=== PATIENT | male | born 1950 | race Asian ===

== ENCOUNTER 2019-03-29 20:18 | Inpatient (IN) | payer MEDICARE, MEDICAID ==
[2019-03-29 21:27] VITALS: BP 143/78
[2019-03-29] MEDS ORDERED: Maalox 30 mL Cup PO PRN (21:51)
[2019-03-29] MEDS ORDERED: Magnesium Hydroxide (MOM) 30 mL UDC PO PRN (21:51)
[2019-03-30] MEDS: Multivitamin Tab PO SCH (08:28)
[2019-03-30 09:13] LABS: CHOLESTEROL 203 mg/dL (<200); HDL -HIGH DENSITY LIPOPROTEIN 55 mg/dL (23-92); TRIGLYCERIDES 179 mg/dL (<150)
--- NOTE | 2019-03-30 11:36 | History and Physical ---
History of Present Illness - HPI Chief Complaint: Patient has been behaving estrange, he was taking to hospital for evaluation, according to report patient has not taking his psychiatric meds. HPI: According to police report his stated that patient has been having an erratic behavior. Vital Signs: Last Vital Signs Temp 97.4 F 03/30/19 06:32 Pulse 98 03/30/19 06:32 Resp 18 03/30/19 06:32 BP 147/88 03/30/19 06:32 Pulse Ox 97 03/30/19 06:32 Past Medical History Cardiovascular: Report: No Pertinent Hx Pulmonary: Report: No Pertinent Hx C[facility]: Report: No Pertinent Hx GI: Report: No Pertinent Hx Psych: Report: No Pertinent Hx Musculoskeletal: Report: No Pertinent Hx Rheumatologic: Report: No pertinent Hx Infectious Disease: Report: No Pertinent Hx Renal/: Report: No Pertinent Hx Endocrine: Report: No Pertinent Hx Dermatology: Report: No Pertinent Hx - Past Surgical History Past Surgical History: Other (Surgery in left foot) Social History Smoke: Quit (in 1994) Alcohol: Occassional Drugs: None Lives: With Family Domestic Violence: Negative - Allergies Allergies/Adverse Reactions: Allergies Allergy/AdvReac Type Severity Reaction Status Date / Time No Known Allergies Allergy Verified 03/29/19 21:49 Review of Systems - Review of Systems Constitutional: Report: No Significant Eyes: Report: No Significant ENT: Report: No Significant Respiratory: Report: No Significant Cardiovascular: Report: No Significant Gastrointestinal: Report: No Significant Genitourinary: Report: No Significant Musculoskeletal: Report: No Significant Skin: Report: No Significant Neurological: Report: No Significant Physical Exam - Physical Exam HEENT: Report: Ears Nose Throat within normal limits Neck: Report: Within normal limits Cardiovascular Systems: Report: Regular, Rate and Rhythm Respiratory: Report: Breath Sounds are within normal limits Abdomen: Report: Non-tender to palpation Back: Report: Inspection of back is within normal limits. Extremities: Report: Non-tender to palpation. Skin: Report: Color of skin is within normal limits Neuro/Psych: Report: Disoriented to name time or place - Lab Results All Lab Results last 24 hours: Laboratory Results - last 24 hr 03/30/19 08:11 Triglycerides 179 H Cholesterol 203 H LDL Cholesterol Direct 131 HDL Cholesterol 55 - Assessment Assessment: Patient is awake, alert, calm, in no acute distress. - Plan Plan: Patient is follow by Psychiatry.
[2019-03-30] MEDS: OLANZapine 10 mg Oral Disintegrating Tab PO SCH (20:37)
[2019-03-31 07:15] LABS: % BASOPHILS 0.4 % (0.0-2.0); % EOSINOPHILS 3.2 % (0.0-5.0); % LYMPHOCYTES 15.8 % (20.0-50.0); % MONOCYTES 6.2 % (2.0-10.0); % NEUTROPHILS 74.4 % (40.0-80.0); EOSINOPHILE ABSOLUTE 0.3 Th/cmm (0.1-0.4); HEMATOCRIT 42.1 % (41.0-60); HEMOGLOBIN 13.9 gm/dL (12-16); LYMPHOCYTE ABSOLUTE 1.4 Th/cmm (1.5-3.0); MEAN CELL VOLUME 94.3 fl (80-99); MEAN CORPUSCULAR HEMOGLOBIN 31.2 pg (27.0-31.0); MEAN PLATELET VOLUME 6.7 fl; MONOCYTE ABSOLUTE 0.6 Th/cmm (0.3-1.0); NEUTROPHILE ABSOLUTE 6.8 Th/cmm (1.8-8.0); PLATELET COUNT 280 Th/cmm (150-400); RED BLOOD COUNT 4.47 Mil/cmm (3.80-5.80); RED CELL DISTRIBUTION WIDTH 13.3 % (11.5-20.0); WHITE BLOOD COUNT 9.1 Th/cmm (4.8-10.8)
[2019-03-31 07:34] LABS: ALB/GLOB RATIO 1.2 (1.0-1.8); ALBUMIN 3.9 gm/dL (4.2-5.5); ALKALINE PHOSPHATASE 64 U/L (34-104); ANION GAP 11.6 (7.0-16.0); BILIRUBIN,TOTAL 0.7 mg/dL (0.3-1.0); BUN - UREA NITROGEN 13 mg/dL (7-25); CALCIUM SERUM 9.1 mg/dL (8.6-10.3); CARBON DIOXIDE 25.5 mEq/L (21.0-31.0); CHLORIDE 104 mEq/L (98-107); CREATININE - SERUM 0.8 mg/dL (0.7-1.3); GFR AFRICAN-AMERICAN > 60.0 ml/min (>90); GFR NON AFRICAN-AMERICAN > 60.0 ml/min; GLUCOSE 120 mg/dL (70-105); POTASSIUM SERUM 4.1 mEq/L (3.5-5.1); SGOT 20 U/L (13-39); SGPT/ALT 15 U/L (7-52); SODIUM SERUM 137 mEq/L (136-145); TOTAL PROTEIN,SERUM 7.2 gm/dL (6.0-8.3)
[2019-03-31] MEDS: Multivitamin Tab PO SCH (08:58)
--- NOTE | 2019-03-31 09:24 | General Progress Note ---
Subjective - Review of Systems Service Date: 03/31/19 Subjective: I am fine Objective - Results Result Diagrams: 03/31/19 07:00 03/31/19 07:00 Recent Labs: Laboratory Last Values WBC 9.1 Th/cmm (4.8-10.8) 03/31/19 07:00 RBC 4.47 Mil/cmm (3.80-5.80) 03/31/19 07:00 Hgb 13.9 gm/dL (12-16) 03/31/19 07:00 Hct 42.1 % (41.0-60) 03/31/19 07:00 MCV 94.3 fl (80-99) 03/31/19 07:00 MCH 31.2 pg (27.0-31.0) H 03/31/19 07:00 MCHC Differential 33.0 pg (28.0-36.0) 03/31/19 07:00 RDW 13.3 % (11.5-20.0) 03/31/19 07:00 Plt Count 280 Th/cmm (150-400) 03/31/19 07:00 MPV 6.7 fl 03/31/19 07:00 Neutrophils % 74.4 % (40.0-80.0) 03/31/19 07:00 Lymphocytes % 15.8 % (20.0-50.0) L 03/31/19 07:00 Monocytes % 6.2 % (2.0-10.0) 03/31/19 07:00 Eosinophils % 3.2 % (0.0-5.0) 03/31/19 07:00 Basophils % 0.4 % (0.0-2.0) 03/31/19 07:00 Sodium 137 mEq/L (136-145) 03/31/19 07:00 Potassium 4.1 mEq/L (3.5-5.1) 03/31/19 07:00 Chloride 104 mEq/L (98-107) 03/31/19 07:00 Carbon Dioxide 25.5 mEq/L (21.0-31.0) 03/31/19 07:00 Anion Gap 11.6 (7.0-16.0) 03/31/19 07:00 BUN 13 mg/dL (7-25) 03/31/19 07:00 Creatinine 0.8 mg/dL (0.7-1.3) 03/31/19 07:00 Est GFR ( Amer) > 60.0 ml/min (>90) 03/31/19 07:00 Est GFR (Non-Af Amer) > 60.0 ml/min 03/31/19 07:00 BUN/Creatinine Ratio 16.3 03/31/19 07:00 Glucose 120 mg/dL (70-105) H 03/31/19 07:00 Calcium 9.1 mg/dL (8.6-10.3) 03/31/19 07:00 Total Bilirubin 0.7 mg/dL (0.3-1.0) 03/31/19 07:00 AST 20 U/L (13-39) 03/31/19 07:00 ALT 15 U/L (7-52) 03/31/19 07:00 Alkaline Phosphatase 64 U/L (34-104) 03/31/19 07:00 Total Protein 7.2 gm/dL (6.0-8.3) 03/31/19 07:00 Albumin 3.9 gm/dL (4.2-5.5) L 03/31/19 07:00 Globulin 3.3 gm/dL 03/31/19 07:00 Albumin/Globulin Ratio 1.2 (1.0-1.8) 03/31/19 07:00 Triglycerides 179 mg/dL (<150) H 03/30/19 08:11 Cholesterol 203 mg/dL (<200) H 03/30/19 08:11 LDL Cholesterol Direct 131 mg/dL (75-193) 03/30/19 08:11 HDL Cholesterol 55 mg/dL (23-92) 03/30/19 08:11 TSH 1.15 uIU/ml (0.34-5.60) 03/31/19 07:00 - Physical Exam Vitals and I&O: Vital Signs Temp 98.4 F 03/31/19 06:18 Pulse 92 03/31/19 06:18 Resp 20 03/31/19 06:18 BP 139/91 03/31/19 06:18 Pulse Ox 96 03/31/19 06:18 Intake & Output 03/30/19 03/31/19 03/31/19 18:59 06:59 18:59 Intake Total 120 Output Total 4 Balance -4 120 Intake: Oral 120 Output: Stool 3 Urine/Stool Mix 1 Other: # Voids 3 Active Medications: Current Medications Acetaminophen (Tylenol) 650 mg PO Q4HR PRN PRN Reason: Mild Pain / Temp above 100 Stop: 05/28/19 21:50 Al Hydrox/Mg Hydrox/Simethicone (Maalox) 30 ml PO Q4HR PRN PRN Reason: GI DISTRESS Stop: 05/28/19 21:50 Lorazepam (Ativan) 0.5 mg PO Q4HR PRN; Protocol PRN Reason: Agitation Stop: 04/28/19 21:50 Last Admin: 03/31/19 08:58 Dose: 0.5 mg Magnesium Hydroxide (Milk Of Magnesia) 30 ml PO HS PRN PRN Reason: Constipation Multivitamins/Vitamin C (Theragran) 1 tab PO DAILY [facility] Stop: 05/29/19 08:59 Last Admin: 03/31/19 08:58 Dose: 1 tab Olanzapine (Zyprexa Zydis) 10 mg PO HS [facility]; Protocol Stop: 05/29/19 20:59 Last Admin: 03/30/19 20:37 Dose: 10 mg Zolpidem Tartrate (Ambien) 5 mg PO HS PRN PRN Reason: Insomnia Stop: 05/28/19 21:50 General: Alert, Other (Confused) HEENT: Atraumatic Neck: Supple Cardiovascular: Regular rate Lungs: Clear to auscultation Abdomen: Bowel sounds Extremities: Other (No edema) Neurological: Normal gait Skin: Other (Warm and dry) Psych/Mental Status: Other (Confused, not oriented) Assessment/Plan - Assessment Assessment: Patient is awake, alert, calm, in no acute distress. Labs are WNL. - Plan Plan: Patient is follow by Psychiatry.
--- NOTE | 2019-03-31 11:17 | Psychiatric Evaluation ---
DATE OF SERVICE: IDENTIFYING INFORMATION: The patient is a 68-year-old Kinyarw[place] male. CHIEF COMPLAINT: "My son convinced me to come here, so I can do a recreation." HISTORY OF PRESENT ILLNESS: The patient has been acting weird. He was taken to the hospital for evaluation. The patient has not been taking his psychotropic medications. It was noted on previous report that his stated that the patient has been having an erratic behavior. The patient himself was a poor historian. He believes that he is 81 years of age and that he has been for more than 40 years, on reality he is actually 68 years of age. The patient was not sure why he is here. He believes he is here for recreation. According to the staff he has not been sleeping. He has been acting erratic, hard to redirect. The patient denies that he has any mental illness. No history of violence. The patient was able to tell me the date. He believes he is in a recreational place. He reports he sleeps 10 hours at night when the information was actually like he has not been sleeping. His appetite is okay. The patient reports he lives with his and that his was born in 1948. He reports that he has okay relation with his . PAST PSYCHIATRIC HISTORY: The patient denies any prior psychiatric treatment; however, according to the records, the patient apparently has not been taking his psychotropic medications, the patient is unable to give any information in that aspect. The patient apparently has been on Zyprexa 10 mg at bedtime. MEDICAL HISTORY: No other medical condition diagnosed. ALLERGIES: No known drug allergies. FAMILY AND SOCIAL HISTORY: The patient reports being since 1975. He reports he has been for 40 years. He said he has 4 children, 2 boys, 2 girls. He is retired. He reported has high school education from [place]. 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 He denies any substance abuse. Denies family Psychotic disorder, not having any legal problem. MENTAL STATUS EXAMINATION: The patient is appropriately dressed, appropriately groomed. His mood is depressed. Affect is constricted. His thoughts are somewhat confused as to believe he is 81 years of age when he is 68. He was able to tell me the date and who is the president of [employer], who was before him, but he is not sure of the reason why he is here. He has not been sleeping, acting erratic, bizarre, diagnosed with john with a history of manic episodes. His insight and judgment is impaired. He denies any intent to harm himself or anybody. He denies visual hallucination or paranoia. IMPRESSION: Bipolar disorder, not otherwise specified. MEDICAL DIAGNOSES: As per medical doctor. PLAN: The patient will continue with the Zyprexa. We will get more collateral information from the family, we will do group therapy and milieu therapy. ESTIMATED LENGTH OF STAY: 3-7 days. DISCHARGE CRITERIA: Acting normal. No longer acting out. After discharge will be seen as an outpatient. JOB# [id number]
[2019-03-31] MEDS: Vitamin D3 2,000 IU SGL PO SCH (15:41)
[2019-03-31] MEDS: Calcium Carb/Vit D 500 mg/200 U Tab PO SCH (17:10)
[2019-03-31] MEDS: OLANZapine 10 mg Oral Disintegrating Tab PO SCH (20:36)
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
[2019-04-01] MEDS: Multivitamin Tab PO SCH (08:48)
[2019-04-01] MEDS: Vitamin D3 2,000 IU SGL PO SCH (08:48)
[2019-04-01] MEDS: Calcium Carb/Vit D 500 mg/200 U Tab PO SCH ×2 (08:49→17:06)
--- NOTE | 2019-04-01 08:51 | General Progress Note ---
Subjective - Review of Systems Service Date: 04/01/19 Subjective: I am fine Objective - Results Result Diagrams: 03/31/19 07:00 03/31/19 07:00 Recent Labs: Laboratory Last Values WBC 9.1 Th/cmm (4.8-10.8) 03/31/19 07:00 RBC 4.47 Mil/cmm (3.80-5.80) 03/31/19 07:00 Hgb 13.9 gm/dL (12-16) 03/31/19 07:00 Hct 42.1 % (41.0-60) 03/31/19 07:00 MCV 94.3 fl (80-99) 03/31/19 07:00 MCH 31.2 pg (27.0-31.0) H 03/31/19 07:00 MCHC Differential 33.0 pg (28.0-36.0) 03/31/19 07:00 RDW 13.3 % (11.5-20.0) 03/31/19 07:00 Plt Count 280 Th/cmm (150-400) 03/31/19 07:00 MPV 6.7 fl 03/31/19 07:00 Neutrophils % 74.4 % (40.0-80.0) 03/31/19 07:00 Lymphocytes % 15.8 % (20.0-50.0) L 03/31/19 07:00 Monocytes % 6.2 % (2.0-10.0) 03/31/19 07:00 Eosinophils % 3.2 % (0.0-5.0) 03/31/19 07:00 Basophils % 0.4 % (0.0-2.0) 03/31/19 07:00 Sodium 137 mEq/L (136-145) 03/31/19 07:00 Potassium 4.1 mEq/L (3.5-5.1) 03/31/19 07:00 Chloride 104 mEq/L (98-107) 03/31/19 07:00 Carbon Dioxide 25.5 mEq/L (21.0-31.0) 03/31/19 07:00 Anion Gap 11.6 (7.0-16.0) 03/31/19 07:00 BUN 13 mg/dL (7-25) 03/31/19 07:00 Creatinine 0.8 mg/dL (0.7-1.3) 03/31/19 07:00 Est GFR ( Amer) > 60.0 ml/min (>90) 03/31/19 07:00 Est GFR (Non-Af Amer) > 60.0 ml/min 03/31/19 07:00 BUN/Creatinine Ratio 16.3 03/31/19 07:00 Glucose 120 mg/dL (70-105) H 03/31/19 07:00 Calcium 9.1 mg/dL (8.6-10.3) 03/31/19 07:00 Total Bilirubin 0.7 mg/dL (0.3-1.0) 03/31/19 07:00 AST 20 U/L (13-39) 03/31/19 07:00 ALT 15 U/L (7-52) 03/31/19 07:00 Alkaline Phosphatase 64 U/L (34-104) 03/31/19 07:00 Total Protein 7.2 gm/dL (6.0-8.3) 03/31/19 07:00 Albumin 3.9 gm/dL (4.2-5.5) L 03/31/19 07:00 Globulin 3.3 gm/dL 03/31/19 07:00 Albumin/Globulin Ratio 1.2 (1.0-1.8) 03/31/19 07:00 Triglycerides 179 mg/dL (<150) H 03/30/19 08:11 Cholesterol 203 mg/dL (<200) H 03/30/19 08:11 LDL Cholesterol Direct 131 mg/dL (75-193) 03/30/19 08:11 HDL Cholesterol 55 mg/dL (23-92) 03/30/19 08:11 TSH 1.15 uIU/ml (0.34-5.60) 03/31/19 07:00 - Physical Exam Vitals and I&O: Vital Signs Temp 98.3 F 04/01/19 06:18 Pulse 80 04/01/19 08:49 Resp 20 04/01/19 06:18 BP 157/86 04/01/19 08:49 Pulse Ox 94 04/01/19 06:18 Intake & Output 03/31/19 04/01/19 04/01/19 18:59 06:59 18:59 Intake Total 1200 240 Balance 1200 240 Intake: Oral 1200 240 Other: # Voids 4 3 # Bowel Movements 1 0 Active Medications: Current Medications Acetaminophen (Tylenol) 650 mg PO Q4HR PRN PRN Reason: Mild Pain / Temp above 100 Stop: 05/28/19 21:50 Al Hydrox/Mg Hydrox/Simethicone (Maalox) 30 ml PO Q4HR PRN PRN Reason: GI DISTRESS Stop: 05/28/19 21:50 Alendronate Sodium (Fosamax) 70 mg PO Fr@0630 [facility] Stop: 06/03/19 06:29 Calcium/Vitamin D (Oscal W/Vitamin D) 1 tab PO BID [facility] Stop: 05/30/19 16:59 Last Admin: 04/01/19 08:49 Dose: 1 tab Ezetimibe (Zetia) 10 mg PO HS [facility] Stop: 05/30/19 20:59 Last Admin: 03/31/19 20:35 Dose: 10 mg Lorazepam (Ativan) 0.5 mg PO Q4HR PRN; Protocol PRN Reason: Agitation Stop: 04/28/19 21:50 Last Admin: 03/31/19 08:58 Dose: 0.5 mg Losartan Potassium (Cozaar) 50 mg PO DAILY [facility] Stop: 05/31/19 08:59 Last Admin: 04/01/19 08:49 Dose: 50 mg Magnesium Hydroxide (Milk Of Magnesia) 30 ml PO HS PRN PRN Reason: Constipation Multivitamins/Vitamin C (Theragran) 1 tab PO DAILY [facility] Stop: 05/29/19 08:59 Last Admin: 04/01/19 08:48 Dose: 1 tab Olanzapine (Zyprexa Zydis) 10 mg PO HS [facility]; Protocol Stop: 05/29/19 20:59 Last Admin: 03/31/19 20:36 Dose: 10 mg Vitamin D (Vitamin D3) 2,000 iu PO DAILY [facility] Stop: 05/30/19 14:59 Last Admin: 04/01/19 08:48 Dose: 2,000 iu Zolpidem Tartrate (Ambien) 5 mg PO HS PRN PRN Reason: Insomnia Stop: 05/28/19 21:50 Last Admin: 03/31/19 20:36 Dose: 5 mg General: Alert, Other (Confused) HEENT: Atraumatic Neck: Supple Cardiovascular: Regular rate Lungs: Clear to auscultation Abdomen: Bowel sounds Extremities: Other (No edema) Neurological: Normal gait Skin: Other (Warm and dry) Psych/Mental Status: Other (Confused, not oriented) Assessment/Plan - Assessment Assessment: Patient is awake, alert, calm, in no acute distress. Dx Psychosis, HTN, dyslipemia. - Plan Plan: Patient is follow by Psychiatry. Continue with home meds. Will continue to monitor.
[2019-04-01] MEDS: OLANZapine ODT 10 MG, OLANZapine ODT 5 MG PO SCH (20:58)
[2019-04-01] MEDS ORDERED: OLANZapine 10 mg Oral Disintegrating Tab PO SCH (21:00)
--- NOTE | 2019-04-02 04:02 | Progress Notes ---
DATE: 04/01/2019 SUBJECTIVE: The patient seen, chart reviewed, discussed with staff. The patient currently in the hospital, states he needs to leave, seen today on 04/01/2019. The patient states he is here because he was apparently "handling books and paperwork at home." He is fixated on leaving, states he has to go to a DMV appointment soon, then he tells me his belongings are in [place] and he has to fly to [facility] and then [facility]. He states he has 3 suitcases full of clothing that he needs to give to the poor people there, "I don't need them, they're not my clothes." The patient is currently in the hospital, not really able to be cared for at a lower level of care. Apparently was acting strange, erratic behaviors at home, hard to redirect at home. ASSESSMENT: The patient is hyperverbal, wants to give his belongings away. PLAN: I will be titrating dosages of medications. It is unclear if he has an underlying bipolar. We will try to get more information. JOB# [id number]
[2019-04-02] MEDS: Calcium Carb/Vit D 500 mg/200 U Tab PO SCH ×2 (09:14→17:21)
[2019-04-02] MEDS: Multivitamin Tab PO SCH (09:15)
[2019-04-02] MEDS: Vitamin D3 2,000 IU SGL PO SCH (09:15)
[2019-04-02] MEDS: Guaifenesin DM 10 ML UDC PO SCH ×2 (12:00→17:20)
[2019-04-02] MEDS: OLANZapine ODT 10 MG, OLANZapine ODT 5 MG PO SCH (21:05)
[2019-04-03] MEDS: Guaifenesin DM 10 ML UDC PO SCH ×4 (00:30→16:59)
[2019-04-03] MEDS: Vitamin D3 2,000 IU SGL PO SCH (08:06)
[2019-04-03] MEDS: Calcium Carb/Vit D 500 mg/200 U Tab PO SCH ×2 (08:06→16:57)
[2019-04-03] MEDS: Multivitamin Tab PO SCH (08:07)
--- NOTE | 2019-04-03 08:42 | General Progress Note ---
Subjective - Review of Systems Service Date: 04/03/19 Subjective: I am fine Objective - Results Result Diagrams: 03/31/19 07:00 03/31/19 07:00 Recent Labs: Laboratory Last Values WBC 9.1 Th/cmm (4.8-10.8) 03/31/19 07:00 RBC 4.47 Mil/cmm (3.80-5.80) 03/31/19 07:00 Hgb 13.9 gm/dL (12-16) 03/31/19 07:00 Hct 42.1 % (41.0-60) 03/31/19 07:00 MCV 94.3 fl (80-99) 03/31/19 07:00 MCH 31.2 pg (27.0-31.0) H 03/31/19 07:00 MCHC Differential 33.0 pg (28.0-36.0) 03/31/19 07:00 RDW 13.3 % (11.5-20.0) 03/31/19 07:00 Plt Count 280 Th/cmm (150-400) 03/31/19 07:00 MPV 6.7 fl 03/31/19 07:00 Neutrophils % 74.4 % (40.0-80.0) 03/31/19 07:00 Lymphocytes % 15.8 % (20.0-50.0) L 03/31/19 07:00 Monocytes % 6.2 % (2.0-10.0) 03/31/19 07:00 Eosinophils % 3.2 % (0.0-5.0) 03/31/19 07:00 Basophils % 0.4 % (0.0-2.0) 03/31/19 07:00 Sodium 137 mEq/L (136-145) 03/31/19 07:00 Potassium 4.1 mEq/L (3.5-5.1) 03/31/19 07:00 Chloride 104 mEq/L (98-107) 03/31/19 07:00 Carbon Dioxide 25.5 mEq/L (21.0-31.0) 03/31/19 07:00 Anion Gap 11.6 (7.0-16.0) 03/31/19 07:00 BUN 13 mg/dL (7-25) 03/31/19 07:00 Creatinine 0.8 mg/dL (0.7-1.3) 03/31/19 07:00 Est GFR ( Amer) > 60.0 ml/min (>90) 03/31/19 07:00 Est GFR (Non-Af Amer) > 60.0 ml/min 03/31/19 07:00 BUN/Creatinine Ratio 16.3 03/31/19 07:00 Glucose 120 mg/dL (70-105) H 03/31/19 07:00 POC Glucose 106 MG/DL (70-105) H 03/29/19 21:20 Calcium 9.1 mg/dL (8.6-10.3) 03/31/19 07:00 Total Bilirubin 0.7 mg/dL (0.3-1.0) 03/31/19 07:00 AST 20 U/L (13-39) 03/31/19 07:00 ALT 15 U/L (7-52) 03/31/19 07:00 Alkaline Phosphatase 64 U/L (34-104) 03/31/19 07:00 Total Protein 7.2 gm/dL (6.0-8.3) 03/31/19 07:00 Albumin 3.9 gm/dL (4.2-5.5) L 03/31/19 07:00 Globulin 3.3 gm/dL 03/31/19 07:00 Albumin/Globulin Ratio 1.2 (1.0-1.8) 03/31/19 07:00 Triglycerides 179 mg/dL (<150) H 03/30/19 08:11 Cholesterol 203 mg/dL (<200) H 03/30/19 08:11 LDL Cholesterol Direct 131 mg/dL (75-193) 03/30/19 08:11 HDL Cholesterol 55 mg/dL (23-92) 03/30/19 08:11 TSH 1.15 uIU/ml (0.34-5.60) 03/31/19 07:00 - Physical Exam Vitals and I&O: Vital Signs Temp 98.0 F 04/03/19 06:53 Pulse 94 04/03/19 08:06 Resp 18 04/03/19 06:53 BP 117/70 04/03/19 08:06 Pulse Ox 94 04/03/19 06:53 Intake & Output 04/02/19 04/03/19 04/03/19 18:59 06:59 18:59 Intake Total 240 Balance 240 Intake: Oral 240 Other: # Voids 3 3 # Bowel Movements 1 0 Active Medications: Current Medications Acetaminophen (Tylenol) 650 mg PO Q4HR PRN PRN Reason: Mild Pain / Temp above 100 Stop: 05/28/19 21:50 Al Hydrox/Mg Hydrox/Simethicone (Maalox) 30 ml PO Q4HR PRN PRN Reason: GI DISTRESS Stop: 05/28/19 21:50 Alendronate Sodium (Fosamax) 70 mg PO Th@0630 [facility] Stop: 06/02/19 06:29 Last Admin: 04/03/19 06:34 Dose: 70 mg Calcium/Vitamin D (Oscal W/Vitamin D) 1 tab PO BID [facility] Stop: 05/30/19 16:59 Last Admin: 04/03/19 08:06 Dose: 1 tab Ezetimibe (Zetia) 10 mg PO HS [facility] Stop: 05/30/19 20:59 Last Admin: 04/02/19 21:05 Dose: 10 mg Guaifenesin/Dextromethorphan (Robitussin Dm) 10 ml PO Q6HR [facility] Stop: 06/01/19 11:59 Last Admin: 04/03/19 06:00 Dose: 10 ml Lorazepam (Ativan) 0.5 mg PO Q4HR PRN; Protocol PRN Reason: Agitation Stop: 04/28/19 21:50 Last Admin: 04/02/19 17:21 Dose: 0.5 mg Losartan Potassium (Cozaar) 50 mg PO DAILY [facility] Stop: 05/31/19 08:59 Last Admin: 04/03/19 08:06 Dose: 50 mg Magnesium Hydroxide (Milk Of Magnesia) 30 ml PO HS PRN PRN Reason: Constipation Multivitamins/Vitamin C (Theragran) 1 tab PO DAILY [facility] Stop: 05/29/19 08:59 Last Admin: 04/03/19 08:07 Dose: 1 tab Olanzapine 10 mg/ Olanzapine 5 (mg) 15 mg PO HS [facility] Stop: 05/31/19 20:59 Last Admin: 04/02/19 21:05 Dose: 15 mg Vitamin D (Vitamin D3) 2,000 iu PO DAILY [facility] Stop: 05/30/19 14:59 Last Admin: 04/03/19 08:06 Dose: 2,000 iu Zolpidem Tartrate (Ambien) 5 mg PO HS PRN PRN Reason: Insomnia Stop: 05/28/19 21:50 Last Admin: 03/31/19 20:36 Dose: 5 mg General: Alert, Other (Confused) HEENT: Atraumatic Neck: Supple Cardiovascular: Regular rate Lungs: Clear to auscultation Abdomen: Bowel sounds Extremities: Other (No edema) Neurological: Normal gait Skin: Other (Warm and dry) Psych/Mental Status: Other (Confused, not oriented) Assessment/Plan - Assessment Assessment: Patient is awake, alert, calm, confused, in no acute distress. - Plan Plan: Patient is follow by Psychiatry. Continue with home meds. Will continue to monitor. Nutritional Asmnt/Malnutr-PDOC - Dietary Evaluation Malnutrition Findings (Please click <Entered> for more info): Nutritional Asmnt/Malnutrition Start: 04/02/19 15: 01 Text: Status: Active Freq: Protocol: Document 04/02/19 15:01 CLARENCE (Rec: 04/02/19 15:23 CLARENCE [email or web address]) Nutritional Asmnt/Malnutrition Patient General Information Nutritional Screening Moderate Risk Diagnosis SCHIZOPHRENIA/ BIPOLAR DISORDER Subjective Information PER SMT OPERATOR : " oriented to self, place and time. He is pleasant upon approach, noted to be talkative, intrusive and guarded, may be anxious at times. Redirectable. No episode of yelling/shouting nor behavioral outbursts noted which were the reasons why he was initially admitted. Ambulatory with steady gait, able to do ADLs independently. VS are within normal limits, not in CR distress, no complaint of pain. " Current Diet Order/ Nutrition Support REGULAR Patient / S.O Can Pertinent Medications MAALOX, FOSAMAX, OSCAL, Pertinent Labs GLUC 120 Nutritional Hx/Data Height 1.7 m Height (Calculated Centimeters) 170.2 Current Weight (lbs) 67.132 kg Weight (Calculated Kilograms) 67.1 Weight (Calculated Grams) 83126.7 [place] Body Weight 67.3 % [place] Body Weight 100 Body Mass Index (BMI) 23.1 Recent Weight Change No Weight Status Approriate GI Symptoms GI Symptoms None Last BM today Difficult in: None Food Allergies No Usual diet at home regular Current %PO Good (75-100%) Estimated Nutritional Goals BEE in Kcals: Using Current wt Calories/Kcals/Kg 25-30 Kcals Calculated 4917-9108 Protein: Using Current wt Protein g/k.8-1 Protein Calculated 54-67 Fluid: ml 1.6-2 (1 ml/kcal) Nutritional Problem 1. Problem Problem No Nutrition related concerns at this time Intervention/Recommendation Comments DECREASED NUTRITION RISK TO LOW DUE TO NO NUTRITION RELATED CONCERNS AT THIS TIME Expected Outcomes/Goals Expected Outcomes/Goals PT TO RECEIVE >90-100% ESTIMATED ENERGY AND PROTEIN DIETITIAN WILL MONITOR PO INTAKE, NUTRITION-RELATED LABS TRENDING WNL, SKIN INTEGRITY, WEIGHTS, GI FUNCTION. DISCHARGE PLAN:PATIENT SHOULD BE ABLE TO CONTINUE WITH CURRENT DIET UPON DISCHARGE. F/UP IN [address]
--- NOTE | 2019-04-03 12:58 | Progress Notes ---
DATE: SUBJECTIVE: The patient seen, chart reviewed, discussed with staff. Per collateral has a long history of bipolar, poor med compliance, aggressive at home. The patient convinced that he needs to go to the [facility], get an updated identification and go [place] [facility] [place]. He states that he has a lot of bags in [facility]. He states that he wants to go to [place], then [facility] and give his clothes away. The patient appearing manic, speech is pressured, ongoing symptoms with grandiosity. He has manic symptoms. Erratic sleep. Fair appetite. No agitation and he is generally following the rules and every directions just very intent on leaving and following up with this plan of giving away all of his belongings to people in the [place]. PLAN: We will continue to monitor. Continue inpatient hospitalization. Medications were noted. Continue dosing of Zyprexa. JOB# [id number]
[2019-04-03] MEDS: OLANZapine ODT 10 MG, OLANZapine ODT 5 MG PO SCH (21:10)
[2019-04-04] MEDS: Guaifenesin DM 10 ML UDC PO SCH ×4 (02:26→17:08)
[2019-04-04] MEDS: Vitamin D3 2,000 IU SGL PO SCH (08:18)
[2019-04-04] MEDS: Calcium Carb/Vit D 500 mg/200 U Tab PO SCH ×2 (08:18→16:08)
[2019-04-04] MEDS: Multivitamin Tab PO SCH (08:19)
--- NOTE | 2019-04-04 09:14 | General Progress Note ---
Subjective - Review of Systems Service Date: 04/04/19 Subjective: I am fine Objective - Results Result Diagrams: 03/31/19 07:00 03/31/19 07:00 Recent Labs: Laboratory Last Values WBC 9.1 Th/cmm (4.8-10.8) 03/31/19 07:00 RBC 4.47 Mil/cmm (3.80-5.80) 03/31/19 07:00 Hgb 13.9 gm/dL (12-16) 03/31/19 07:00 Hct 42.1 % (41.0-60) 03/31/19 07:00 MCV 94.3 fl (80-99) 03/31/19 07:00 MCH 31.2 pg (27.0-31.0) H 03/31/19 07:00 MCHC Differential 33.0 pg (28.0-36.0) 03/31/19 07:00 RDW 13.3 % (11.5-20.0) 03/31/19 07:00 Plt Count 280 Th/cmm (150-400) 03/31/19 07:00 MPV 6.7 fl 03/31/19 07:00 Neutrophils % 74.4 % (40.0-80.0) 03/31/19 07:00 Lymphocytes % 15.8 % (20.0-50.0) L 03/31/19 07:00 Monocytes % 6.2 % (2.0-10.0) 03/31/19 07:00 Eosinophils % 3.2 % (0.0-5.0) 03/31/19 07:00 Basophils % 0.4 % (0.0-2.0) 03/31/19 07:00 Sodium 137 mEq/L (136-145) 03/31/19 07:00 Potassium 4.1 mEq/L (3.5-5.1) 03/31/19 07:00 Chloride 104 mEq/L (98-107) 03/31/19 07:00 Carbon Dioxide 25.5 mEq/L (21.0-31.0) 03/31/19 07:00 Anion Gap 11.6 (7.0-16.0) 03/31/19 07:00 BUN 13 mg/dL (7-25) 03/31/19 07:00 Creatinine 0.8 mg/dL (0.7-1.3) 03/31/19 07:00 Est GFR ( Amer) > 60.0 ml/min (>90) 03/31/19 07:00 Est GFR (Non-Af Amer) > 60.0 ml/min 03/31/19 07:00 BUN/Creatinine Ratio 16.3 03/31/19 07:00 Glucose 120 mg/dL (70-105) H 03/31/19 07:00 POC Glucose 106 MG/DL (70-105) H 03/29/19 21:20 Calcium 9.1 mg/dL (8.6-10.3) 03/31/19 07:00 Total Bilirubin 0.7 mg/dL (0.3-1.0) 03/31/19 07:00 AST 20 U/L (13-39) 03/31/19 07:00 ALT 15 U/L (7-52) 03/31/19 07:00 Alkaline Phosphatase 64 U/L (34-104) 03/31/19 07:00 Total Protein 7.2 gm/dL (6.0-8.3) 03/31/19 07:00 Albumin 3.9 gm/dL (4.2-5.5) L 03/31/19 07:00 Globulin 3.3 gm/dL 03/31/19 07:00 Albumin/Globulin Ratio 1.2 (1.0-1.8) 03/31/19 07:00 Triglycerides 179 mg/dL (<150) H 03/30/19 08:11 Cholesterol 203 mg/dL (<200) H 03/30/19 08:11 LDL Cholesterol Direct 131 mg/dL (75-193) 03/30/19 08:11 HDL Cholesterol 55 mg/dL (23-92) 03/30/19 08:11 TSH 1.15 uIU/ml (0.34-5.60) 03/31/19 07:00 - Physical Exam Vitals and I&O: Vital Signs Temp 98.1 F 04/04/19 06:35 Pulse 69 04/04/19 08:19 Resp 19 04/04/19 07:39 BP 129/80 04/04/19 08:19 Pulse Ox 97 04/04/19 06:35 Intake & Output 04/03/19 04/04/19 04/04/19 18:59 06:59 18:59 Intake Total 240 Balance 240 Intake: Oral 240 Other: # Voids 2 3 # Bowel Movements 1 1 Active Medications: Current Medications Acetaminophen (Tylenol) 650 mg PO Q4HR PRN PRN Reason: Mild Pain / Temp above 100 Stop: 05/28/19 21:50 Al Hydrox/Mg Hydrox/Simethicone (Maalox) 30 ml PO Q4HR PRN PRN Reason: GI DISTRESS Stop: 05/28/19 21:50 Alendronate Sodium (Fosamax) 70 mg PO Th@0630 [facility] Stop: 06/02/19 06:29 Last Admin: 04/03/19 06:34 Dose: 70 mg Calcium/Vitamin D (Oscal W/Vitamin D) 1 tab PO BID [facility] Stop: 05/30/19 16:59 Last Admin: 04/04/19 08:18 Dose: 1 tab Divalproex Sodium (Depakote Dr) 125 mg PO Q12HR [facility]; Protocol Stop: 06/02/19 20:59 Last Admin: 04/04/19 08:18 Dose: 125 mg Ezetimibe (Zetia) 10 mg PO HS [facility] Stop: 05/30/19 20:59 Last Admin: 04/03/19 21:09 Dose: 10 mg Guaifenesin/Dextromethorphan (Robitussin Dm) 10 ml PO Q6HR [facility] Stop: 06/01/19 11:59 Last Admin: 04/04/19 06:17 Dose: 10 ml Lorazepam (Ativan) 0.5 mg PO Q4HR PRN; Protocol PRN Reason: Agitation Stop: 04/28/19 21:50 Last Admin: 04/02/19 17:21 Dose: 0.5 mg Losartan Potassium (Cozaar) 50 mg PO DAILY [facility] Stop: 05/31/19 08:59 Last Admin: 04/04/19 08:19 Dose: 50 mg Magnesium Hydroxide (Milk Of Magnesia) 30 ml PO HS PRN PRN Reason: Constipation Multivitamins/Vitamin C (Theragran) 1 tab PO DAILY [facility] Stop: 05/29/19 08:59 Last Admin: 04/04/19 08:19 Dose: 1 tab Olanzapine 10 mg/ Olanzapine 5 (mg) 15 mg PO HS [facility] Stop: 05/31/19 20:59 Last Admin: 04/03/19 21:10 Dose: 15 mg Vitamin D (Vitamin D3) 2,000 iu PO DAILY [facility] Stop: 05/30/19 14:59 Last Admin: 04/04/19 08:18 Dose: 2,000 iu Zolpidem Tartrate (Ambien) 5 mg PO HS PRN PRN Reason: Insomnia Stop: 05/28/19 21:50 Last Admin: 03/31/19 20:36 Dose: 5 mg General: Alert, Other (Confused) HEENT: Atraumatic Neck: Supple Cardiovascular: Regular rate Lungs: Clear to auscultation Abdomen: Bowel sounds Extremities: Other (No edema) Neurological: Normal gait Skin: Other (Warm and dry) Psych/Mental Status: Other (Confused, not oriented) Assessment/Plan - Assessment Assessment: Patient is awake, alert, calm, confused, in no acute distress. - Plan Plan: Patient is follow by Psychiatry. Continue with home meds. Will continue to monitor. 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 He is pleasant upon approach, noted to be talkative, intrusive and guarded, may be anxious at times. Redirectable. No episode of yelling/shouting nor behavioral outbursts noted which were the reasons why he was initially admitted. Ambulatory with steady gait, able to do ADLs independently. VS are within normal limits, not in CR distress, no complaint of pain. " Current Diet Order/ Nutrition Support REGULAR Patient / S.O Can Pertinent Medications MAALOX, FOSAMAX, OSCAL, Pertinent Labs GLUC 120 Nutritional Hx/Data Height 1.7 m Height (Calculated Centimeters) 170.2 Current Weight (lbs) 67.132 kg Weight (Calculated Kilograms) 67.1 Weight (Calculated Grams) 17802.7 [place] Body Weight 67.3 % [place] Body Weight 100 Body Mass Index (BMI) 23.1 Recent Weight Change No Weight Status Approriate GI Symptoms GI Symptoms None Last BM today Difficult in: None Food Allergies No Usual diet at home regular Current %PO Good (75-100%) Estimated Nutritional Goals BEE in Kcals: Using Current wt Calories/Kcals/Kg 25-30 Kcals Calculated 2048-3257 Protein: Using Current wt Protein g/k.8-1 Protein Calculated 54-67 Fluid: ml 1.6-2 (1 ml/kcal) Nutritional Problem 1. Problem Problem No Nutrition related concerns at this time Intervention/Recommendation Comments DECREASED NUTRITION RISK TO LOW DUE TO NO NUTRITION RELATED CONCERNS AT THIS TIME Expected Outcomes/Goals Expected Outcomes/Goals PT TO RECEIVE >90-100% ESTIMATED ENERGY AND PROTEIN DIETITIAN WILL MONITOR PO INTAKE, NUTRITION-RELATED LABS TRENDING WNL, SKIN INTEGRITY, WEIGHTS, GI FUNCTION. DISCHARGE PLAN:PATIENT SHOULD BE ABLE TO CONTINUE WITH CURRENT DIET UPON DISCHARGE. F/UP IN [address]
--- NOTE | 2019-04-04 14:41 | Progress Notes ---
DATE: 04/03/2019 The patient remains pretty grandiose, wants to go to [place], get on a plane, give all of his belongings away to [place] people. 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 The patient believing he is in the intensive care unit and some confusion noted. Fair sleep and fair appetite. ASSESSMENT: The patient with ongoing symptoms, not safe for a lower level of care. PLAN: We will continue to monitor. Consider dosing of Depakote. JOB# [id number]
[2019-04-04] MEDS: OLANZapine ODT 10 MG, OLANZapine ODT 5 MG PO SCH (21:06)
[2019-04-05] MEDS: Guaifenesin DM 10 ML UDC PO SCH ×5 (00:01→23:47)
--- NOTE | 2019-04-05 02:42 | Progress Notes ---
DATE: 04/04/2019 SUBJECTIVE: The patient in the hospital, still pressured. No agitation. He is generally polite and cooperative, but still has thoughts that he needs to go to [place] and give his clothes away. Fixated on going to [place], DMV, mostly demanding, asking to leave, wanting a ride to the airport, still delusional, grandiose, ongoing safety concerns. Fair sleep, fair appetite. ASSESSMENT: The patient remains symptomatic, still manic appearing, grandiose. PLAN: We will continue to monitor, titrate and adjust medications, recent dose increase of Zyprexa. JOB# [id number]
[2019-04-05] MEDS: Vitamin D3 2,000 IU SGL PO SCH (08:52)
[2019-04-05] MEDS: Multivitamin Tab PO SCH (08:52)
[2019-04-05] MEDS: Calcium Carb/Vit D 500 mg/200 U Tab PO SCH ×2 (08:52→16:39)
--- NOTE | 2019-04-05 10:00 | General Progress Note ---
Subjective - Review of Systems Service Date: 04/05/19 Subjective: I am fine Objective - Results Result Diagrams: 03/31/19 07:00 03/31/19 07:00 Recent Labs: Laboratory Last Values WBC 9.1 Th/cmm (4.8-10.8) 03/31/19 07:00 RBC 4.47 Mil/cmm (3.80-5.80) 03/31/19 07:00 Hgb 13.9 gm/dL (12-16) 03/31/19 07:00 Hct 42.1 % (41.0-60) 03/31/19 07:00 MCV 94.3 fl (80-99) 03/31/19 07:00 MCH 31.2 pg (27.0-31.0) H 03/31/19 07:00 MCHC Differential 33.0 pg (28.0-36.0) 03/31/19 07:00 RDW 13.3 % (11.5-20.0) 03/31/19 07:00 Plt Count 280 Th/cmm (150-400) 03/31/19 07:00 MPV 6.7 fl 03/31/19 07:00 Neutrophils % 74.4 % (40.0-80.0) 03/31/19 07:00 Lymphocytes % 15.8 % (20.0-50.0) L 03/31/19 07:00 Monocytes % 6.2 % (2.0-10.0) 03/31/19 07:00 Eosinophils % 3.2 % (0.0-5.0) 03/31/19 07:00 Basophils % 0.4 % (0.0-2.0) 03/31/19 07:00 Sodium 137 mEq/L (136-145) 03/31/19 07:00 Potassium 4.1 mEq/L (3.5-5.1) 03/31/19 07:00 Chloride 104 mEq/L (98-107) 03/31/19 07:00 Carbon Dioxide 25.5 mEq/L (21.0-31.0) 03/31/19 07:00 Anion Gap 11.6 (7.0-16.0) 03/31/19 07:00 BUN 13 mg/dL (7-25) 03/31/19 07:00 Creatinine 0.8 mg/dL (0.7-1.3) 03/31/19 07:00 Est GFR ( Amer) > 60.0 ml/min (>90) 03/31/19 07:00 Est GFR (Non-Af Amer) > 60.0 ml/min 03/31/19 07:00 BUN/Creatinine Ratio 16.3 03/31/19 07:00 Glucose 120 mg/dL (70-105) H 03/31/19 07:00 POC Glucose 106 MG/DL (70-105) H 03/29/19 21:20 Calcium 9.1 mg/dL (8.6-10.3) 03/31/19 07:00 Total Bilirubin 0.7 mg/dL (0.3-1.0) 03/31/19 07:00 AST 20 U/L (13-39) 03/31/19 07:00 ALT 15 U/L (7-52) 03/31/19 07:00 Alkaline Phosphatase 64 U/L (34-104) 03/31/19 07:00 Total Protein 7.2 gm/dL (6.0-8.3) 03/31/19 07:00 Albumin 3.9 gm/dL (4.2-5.5) L 03/31/19 07:00 Globulin 3.3 gm/dL 03/31/19 07:00 Albumin/Globulin Ratio 1.2 (1.0-1.8) 03/31/19 07:00 Triglycerides 179 mg/dL (<150) H 03/30/19 08:11 Cholesterol 203 mg/dL (<200) H 03/30/19 08:11 LDL Cholesterol Direct 131 mg/dL (75-193) 03/30/19 08:11 HDL Cholesterol 55 mg/dL (23-92) 03/30/19 08:11 TSH 1.15 uIU/ml (0.34-5.60) 03/31/19 07:00 Valproic Acid < 10.0 ug/mL (50.0-100.0) L 04/05/19 05:50 - Physical Exam Vitals and I&O: Vital Signs Temp 99.1 F 04/05/19 06:54 Pulse 94 04/05/19 06:54 Resp 20 04/05/19 06:54 BP 127/75 04/05/19 06:54 Pulse Ox 94 04/05/19 06:54 Intake & Output 04/04/19 04/05/19 04/05/19 18:59 06:59 18:59 Intake Total 480 Balance 480 Intake: Oral 480 Other: # Voids 2 Active Medications: Current Medications Acetaminophen (Tylenol) 650 mg PO Q4HR PRN PRN Reason: Mild Pain / Temp above 100 Stop: 05/28/19 21:50 Al Hydrox/Mg Hydrox/Simethicone (Maalox) 30 ml PO Q4HR PRN PRN Reason: GI DISTRESS Stop: 05/28/19 21:50 Alendronate Sodium (Fosamax) 70 mg PO Th@0630 [facility] Stop: 06/02/19 06:29 Last Admin: 04/03/19 06:34 Dose: 70 mg Calcium/Vitamin D (Oscal W/Vitamin D) 1 tab PO BID [facility] Stop: 05/30/19 16:59 Last Admin: 04/05/19 08:52 Dose: 1 tab Divalproex Sodium (Depakote Dr) 125 mg PO Q12HR [facility]; Protocol Stop: 06/02/19 20:59 Last Admin: 04/05/19 08:52 Dose: 125 mg Ezetimibe (Zetia) 10 mg PO HS [facility] Stop: 05/30/19 20:59 Last Admin: 04/04/19 21:06 Dose: 10 mg Guaifenesin/Dextromethorphan (Robitussin Dm) 10 ml PO Q6HR [facility] Stop: 06/01/19 11:59 Last Admin: 04/05/19 06:04 Dose: 10 ml Lorazepam (Ativan) 0.5 mg PO Q4HR PRN; Protocol PRN Reason: Agitation Stop: 04/28/19 21:50 Last Admin: 04/04/19 15:20 Dose: 0.5 mg Losartan Potassium (Cozaar) 50 mg PO DAILY [facility] Stop: 05/31/19 08:59 Last Admin: 04/04/19 08:19 Dose: 50 mg Magnesium Hydroxide (Milk Of Magnesia) 30 ml PO HS PRN PRN Reason: Constipation Multivitamins/Vitamin C (Theragran) 1 tab PO DAILY [facility] Stop: 05/29/19 08:59 Last Admin: 04/05/19 08:52 Dose: 1 tab Olanzapine 10 mg/ Olanzapine 5 (mg) 15 mg PO HS [facility] Stop: 05/31/19 20:59 Last Admin: 04/04/19 21:06 Dose: 15 mg Vitamin D (Vitamin D3) 2,000 iu PO DAILY [facility] Stop: 05/30/19 14:59 Last Admin: 04/05/19 08:52 Dose: 2,000 iu Zolpidem Tartrate (Ambien) 5 mg PO HS PRN PRN Reason: Insomnia Stop: 05/28/19 21:50 Last Admin: 03/31/19 20:36 Dose: 5 mg General: Alert, Other (Confused) HEENT: Atraumatic Neck: Supple Cardiovascular: Regular rate Lungs: Clear to auscultation Abdomen: Bowel sounds Extremities: Other (No edema) Neurological: Normal gait Skin: Other (Warm and dry) Psych/Mental Status: Other (Confused, not oriented) Assessment/Plan - Assessment Assessment: Patient is awake, alert, calm, confused, in no acute distress. - Plan Plan: Patient is follow by Psychiatry. Continue with home meds. Will continue to monitor. 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 He is pleasant upon approach, noted to be talkative, intrusive and guarded, may be anxious at times. Redirectable. No episode of yelling/shouting nor behavioral outbursts noted which were the reasons why he was initially admitted. Ambulatory with steady gait, able to do ADLs independently. VS are within normal limits, not in CR distress, no complaint of pain. " Current Diet Order/ Nutrition Support REGULAR Patient / S.O Can Pertinent Medications MAALOX, FOSAMAX, OSCAL, Pertinent Labs GLUC 120 Nutritional Hx/Data Height 1.7 m Height (Calculated Centimeters) 170.2 Current Weight (lbs) 67.132 kg Weight (Calculated Kilograms) 67.1 Weight (Calculated Grams) 81194.7 [place] Body Weight 67.3 % [place] Body Weight 100 Body Mass Index (BMI) 23.1 Recent Weight Change No Weight Status Approriate GI Symptoms GI Symptoms None Last BM today Difficult in: None Food Allergies No Usual diet at home regular Current %PO Good (75-100%) Estimated Nutritional Goals BEE in Kcals: Using Current wt Calories/Kcals/Kg 25-30 Kcals Calculated 8547-8977 Protein: Using Current wt Protein g/k.8-1 Protein Calculated 54-67 Fluid: ml 1.6-2 (1 ml/kcal) Nutritional Problem 1. Problem Problem No Nutrition related concerns at this time Intervention/Recommendation Comments DECREASED NUTRITION RISK TO LOW DUE TO NO NUTRITION RELATED CONCERNS AT THIS TIME Expected Outcomes/Goals Expected Outcomes/Goals PT TO RECEIVE >90-100% ESTIMATED ENERGY AND PROTEIN DIETITIAN WILL MONITOR PO INTAKE, NUTRITION-RELATED LABS TRENDING WNL, SKIN INTEGRITY, WEIGHTS, GI FUNCTION. DISCHARGE PLAN:PATIENT SHOULD BE ABLE TO CONTINUE WITH CURRENT DIET UPON DISCHARGE. F/UP IN [address]
[2019-04-05] MEDS: OLANZapine ODT 10 MG, OLANZapine ODT 5 MG PO SCH (21:04)
--- NOTE | 2019-04-06 01:27 | Progress Notes ---
DATE: 04/05/2019 Dr. Humphrey covering for Dr. Odonnell. Chart reviewed and the patient interviewed. Also I discussed the patient's condition with the staff and reviewed records and labs. The patient speaks [place] mainly and most upcoming patient's depends expression and trying to explain to him the questions. The patient is still having episodes of anger, but much less than before. Also, still hyperverbal and intrusive to others with grandiose delusions. He also still needs redirections. Otherwise, the patient continued to comply with taking Depakote and Zyprexa with no side effects. ASSESSMENT: The patient is still psychotic and needs close monitoring. TREATMENT PLAN: Continue to monitor behavior and condition closely. Also, Depakote blood level and continue to follow up. JOB# [id number]
[2019-04-06] MEDS: Guaifenesin DM 10 ML UDC PO SCH ×3 (05:33→17:44)
[2019-04-06] MEDS: Multivitamin Tab PO SCH (09:39)
[2019-04-06] MEDS: Vitamin D3 2,000 IU SGL PO SCH (09:39)
[2019-04-06] MEDS: Calcium Carb/Vit D 500 mg/200 U Tab PO SCH ×2 (09:39→17:44)
--- NOTE | 2019-04-06 12:21 | General Progress Note ---
Subjective - Review of Systems Service Date: 04/06/19 Subjective: I am fine Objective - Results Result Diagrams: 03/31/19 07:00 03/31/19 07:00 Recent Labs: Laboratory Last Values WBC 9.1 Th/cmm (4.8-10.8) 03/31/19 07:00 RBC 4.47 Mil/cmm (3.80-5.80) 03/31/19 07:00 Hgb 13.9 gm/dL (12-16) 03/31/19 07:00 Hct 42.1 % (41.0-60) 03/31/19 07:00 MCV 94.3 fl (80-99) 03/31/19 07:00 MCH 31.2 pg (27.0-31.0) H 03/31/19 07:00 MCHC Differential 33.0 pg (28.0-36.0) 03/31/19 07:00 RDW 13.3 % (11.5-20.0) 03/31/19 07:00 Plt Count 280 Th/cmm (150-400) 03/31/19 07:00 MPV 6.7 fl 03/31/19 07:00 Neutrophils % 74.4 % (40.0-80.0) 03/31/19 07:00 Lymphocytes % 15.8 % (20.0-50.0) L 03/31/19 07:00 Monocytes % 6.2 % (2.0-10.0) 03/31/19 07:00 Eosinophils % 3.2 % (0.0-5.0) 03/31/19 07:00 Basophils % 0.4 % (0.0-2.0) 03/31/19 07:00 Sodium 137 mEq/L (136-145) 03/31/19 07:00 Potassium 4.1 mEq/L (3.5-5.1) 03/31/19 07:00 Chloride 104 mEq/L (98-107) 03/31/19 07:00 Carbon Dioxide 25.5 mEq/L (21.0-31.0) 03/31/19 07:00 Anion Gap 11.6 (7.0-16.0) 03/31/19 07:00 BUN 13 mg/dL (7-25) 03/31/19 07:00 Creatinine 0.8 mg/dL (0.7-1.3) 03/31/19 07:00 Est GFR ( Amer) > 60.0 ml/min (>90) 03/31/19 07:00 Est GFR (Non-Af Amer) > 60.0 ml/min 03/31/19 07:00 BUN/Creatinine Ratio 16.3 03/31/19 07:00 Glucose 120 mg/dL (70-105) H 03/31/19 07:00 POC Glucose 106 MG/DL (70-105) H 03/29/19 21:20 Calcium 9.1 mg/dL (8.6-10.3) 03/31/19 07:00 Total Bilirubin 0.7 mg/dL (0.3-1.0) 03/31/19 07:00 AST 20 U/L (13-39) 03/31/19 07:00 ALT 15 U/L (7-52) 03/31/19 07:00 Alkaline Phosphatase 64 U/L (34-104) 03/31/19 07:00 Total Protein 7.2 gm/dL (6.0-8.3) 03/31/19 07:00 Albumin 3.9 gm/dL (4.2-5.5) L 03/31/19 07:00 Globulin 3.3 gm/dL 03/31/19 07:00 Albumin/Globulin Ratio 1.2 (1.0-1.8) 03/31/19 07:00 Triglycerides 179 mg/dL (<150) H 03/30/19 08:11 Cholesterol 203 mg/dL (<200) H 03/30/19 08:11 LDL Cholesterol Direct 131 mg/dL (75-193) 03/30/19 08:11 HDL Cholesterol 55 mg/dL (23-92) 03/30/19 08:11 TSH 1.15 uIU/ml (0.34-5.60) 03/31/19 07:00 Valproic Acid < 10.0 ug/mL (50.0-100.0) L 04/05/19 05:50 - Physical Exam Vitals and I&O: Vital Signs Temp 98.1 F 04/06/19 06:03 Pulse 97 04/06/19 06:03 Resp 20 04/06/19 06:03 BP 121/77 04/06/19 06:03 Pulse Ox 98 04/06/19 06:03 Intake & Output 04/05/19 04/06/19 04/06/19 18:59 06:59 18:59 Intake Total 1200 960 Balance 1200 960 Intake: Oral 1200 960 Other: # Voids 4 2 # Bowel Movements 1 Active Medications: Current Medications Acetaminophen (Tylenol) 650 mg PO Q4HR PRN PRN Reason: Mild Pain / Temp above 100 Stop: 05/28/19 21:50 Al Hydrox/Mg Hydrox/Simethicone (Maalox) 30 ml PO Q4HR PRN PRN Reason: GI DISTRESS Stop: 05/28/19 21:50 Alendronate Sodium (Fosamax) 70 mg PO Th@0630 [facility] Stop: 06/02/19 06:29 Last Admin: 04/03/19 06:34 Dose: 70 mg Calcium/Vitamin D (Oscal W/Vitamin D) 1 tab PO BID [facility] Stop: 05/30/19 16:59 Last Admin: 04/06/19 09:39 Dose: 1 tab Divalproex Sodium (Depakote Dr) 125 mg PO Q12HR [facility]; Protocol Stop: 06/02/19 20:59 Last Admin: 04/06/19 09:39 Dose: 125 mg Ezetimibe (Zetia) 10 mg PO HS [facility] Stop: 05/30/19 20:59 Last Admin: 04/05/19 21:03 Dose: 10 mg Guaifenesin/Dextromethorphan (Robitussin Dm) 10 ml PO Q6HR [facility] Stop: 06/01/19 11:59 Last Admin: 04/06/19 05:33 Dose: 10 ml Lorazepam (Ativan) 0.5 mg PO Q4HR PRN; Protocol PRN Reason: Agitation Stop: 04/28/19 21:50 Last Admin: 04/04/19 15:20 Dose: 0.5 mg Losartan Potassium (Cozaar) 50 mg PO DAILY [facility] Stop: 05/31/19 08:59 Last Admin: 04/06/19 09:40 Dose: Not Given Magnesium Hydroxide (Milk Of Magnesia) 30 ml PO HS PRN PRN Reason: Constipation Multivitamins/Vitamin C (Theragran) 1 tab PO DAILY [facility] Stop: 05/29/19 08:59 Last Admin: 04/06/19 09:39 Dose: 1 tab Olanzapine 10 mg/ Olanzapine 5 (mg) 15 mg PO HS [facility] Stop: 05/31/19 20:59 Last Admin: 04/05/19 21:04 Dose: 15 mg Vitamin D (Vitamin D3) 2,000 iu PO DAILY [facility] Stop: 05/30/19 14:59 Last Admin: 04/06/19 09:39 Dose: 2,000 iu Zolpidem Tartrate (Ambien) 5 mg PO HS PRN PRN Reason: Insomnia Stop: 05/28/19 21:50 Last Admin: 03/31/19 20:36 Dose: 5 mg General: Alert, Other (Confused) HEENT: Atraumatic Neck: Supple Cardiovascular: Regular rate Lungs: Clear to auscultation Abdomen: Bowel sounds Extremities: Other (No edema) Neurological: Normal gait Skin: Other (Warm and dry) Psych/Mental Status: Other (Confused, not oriented) Assessment/Plan - Assessment Assessment: Patient is awake, alert, calm, confused, in no acute distress. - Plan Plan: Patient is follow by Psychiatry. Continue with home meds. Will continue to monitor. 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 He is pleasant upon approach, noted to be talkative, intrusive and guarded, may be anxious at times. Redirectable. No episode of yelling/shouting nor behavioral outbursts noted which were the reasons why he was initially admitted. Ambulatory with steady gait, able to do ADLs independently. VS are within normal limits, not in CR distress, no complaint of pain. " Current Diet Order/ Nutrition Support REGULAR Patient / S.O Can Pertinent Medications MAALOX, FOSAMAX, OSCAL, Pertinent Labs GLUC 120 Nutritional Hx/Data Height 1.7 m Height (Calculated Centimeters) 170.2 Current Weight (lbs) 67.132 kg Weight (Calculated Kilograms) 67.1 Weight (Calculated Grams) 41812.7 [place] Body Weight 67.3 % [place] Body Weight 100 Body Mass Index (BMI) 23.1 Recent Weight Change No Weight Status Approriate GI Symptoms GI Symptoms None Last BM today Difficult in: None Food Allergies No Usual diet at home regular Current %PO Good (75-100%) Estimated Nutritional Goals BEE in Kcals: Using Current wt Calories/Kcals/Kg 25-30 Kcals Calculated 4628-5195 Protein: Using Current wt Protein g/k.8-1 Protein Calculated 54-67 Fluid: ml 1.6-2 (1 ml/kcal) Nutritional Problem 1. Problem Problem No Nutrition related concerns at this time Intervention/Recommendation Comments DECREASED NUTRITION RISK TO LOW DUE TO NO NUTRITION RELATED CONCERNS AT THIS TIME Expected Outcomes/Goals Expected Outcomes/Goals PT TO RECEIVE >90-100% ESTIMATED ENERGY AND PROTEIN DIETITIAN WILL MONITOR PO INTAKE, NUTRITION-RELATED LABS TRENDING WNL, SKIN INTEGRITY, WEIGHTS, GI FUNCTION. DISCHARGE PLAN:PATIENT SHOULD BE ABLE TO CONTINUE WITH CURRENT DIET UPON DISCHARGE. F/UP IN [address]
[2019-04-06] MEDS: OLANZapine ODT 10 MG, OLANZapine ODT 5 MG PO SCH (21:05)
--- NOTE | 2019-04-06 22:30 | Progress Notes ---
DATE: SUBJECTIVE: Chart was reviewed and the patient interviewed and discussed the patient's condition with the staff. The patient continued to ramble in [place] words and still has thought processes, thoughts are incoherent. She also is still anxious and according to staff, has some grandiose delusions and she is still intrusive to others. She also is still hyperverbal. Otherwise, the patient is compliant with taking her medications with no side effect of medications. ASSESSMENT: The patient is still manic and still needs close monitoring. TREATMENT PLAN: Continue to monitor her behavior and her condition closely. Also, Depakote blood level was done yesterday and results are pending. Also, continue to adjust psychotropic medications and followup. [facility]# [id number]
[2019-04-07] MEDS: Guaifenesin DM 10 ML UDC PO SCH ×4 (06:16→17:01)
--- NOTE | 2019-04-07 08:36 | General Progress Note ---
Subjective - Review of Systems Service Date: 04/07/19 Subjective: I am fine. Objective - Results Result Diagrams: 03/31/19 07:00 03/31/19 07:00 Recent Labs: Laboratory Last Values WBC 9.1 Th/cmm (4.8-10.8) 03/31/19 07:00 RBC 4.47 Mil/cmm (3.80-5.80) 03/31/19 07:00 Hgb 13.9 gm/dL (12-16) 03/31/19 07:00 Hct 42.1 % (41.0-60) 03/31/19 07:00 MCV 94.3 fl (80-99) 03/31/19 07:00 MCH 31.2 pg (27.0-31.0) H 03/31/19 07:00 MCHC Differential 33.0 pg (28.0-36.0) 03/31/19 07:00 RDW 13.3 % (11.5-20.0) 03/31/19 07:00 Plt Count 280 Th/cmm (150-400) 03/31/19 07:00 MPV 6.7 fl 03/31/19 07:00 Neutrophils % 74.4 % (40.0-80.0) 03/31/19 07:00 Lymphocytes % 15.8 % (20.0-50.0) L 03/31/19 07:00 Monocytes % 6.2 % (2.0-10.0) 03/31/19 07:00 Eosinophils % 3.2 % (0.0-5.0) 03/31/19 07:00 Basophils % 0.4 % (0.0-2.0) 03/31/19 07:00 Sodium 137 mEq/L (136-145) 03/31/19 07:00 Potassium 4.1 mEq/L (3.5-5.1) 03/31/19 07:00 Chloride 104 mEq/L (98-107) 03/31/19 07:00 Carbon Dioxide 25.5 mEq/L (21.0-31.0) 03/31/19 07:00 Anion Gap 11.6 (7.0-16.0) 03/31/19 07:00 BUN 13 mg/dL (7-25) 03/31/19 07:00 Creatinine 0.8 mg/dL (0.7-1.3) 03/31/19 07:00 Est GFR ( Amer) > 60.0 ml/min (>90) 03/31/19 07:00 Est GFR (Non-Af Amer) > 60.0 ml/min 03/31/19 07:00 BUN/Creatinine Ratio 16.3 03/31/19 07:00 Glucose 120 mg/dL (70-105) H 03/31/19 07:00 POC Glucose 106 MG/DL (70-105) H 03/29/19 21:20 Calcium 9.1 mg/dL (8.6-10.3) 03/31/19 07:00 Total Bilirubin 0.7 mg/dL (0.3-1.0) 03/31/19 07:00 AST 20 U/L (13-39) 03/31/19 07:00 ALT 15 U/L (7-52) 03/31/19 07:00 Alkaline Phosphatase 64 U/L (34-104) 03/31/19 07:00 Total Protein 7.2 gm/dL (6.0-8.3) 03/31/19 07:00 Albumin 3.9 gm/dL (4.2-5.5) L 03/31/19 07:00 Globulin 3.3 gm/dL 03/31/19 07:00 Albumin/Globulin Ratio 1.2 (1.0-1.8) 03/31/19 07:00 Triglycerides 179 mg/dL (<150) H 03/30/19 08:11 Cholesterol 203 mg/dL (<200) H 03/30/19 08:11 LDL Cholesterol Direct 131 mg/dL (75-193) 03/30/19 08:11 HDL Cholesterol 55 mg/dL (23-92) 03/30/19 08:11 TSH 1.15 uIU/ml (0.34-5.60) 03/31/19 07:00 Valproic Acid < 10.0 ug/mL (50.0-100.0) L 04/05/19 05:50 - Physical Exam Vitals and I&O: Vital Signs Temp 98.4 F 04/07/19 06:05 Pulse 88 04/07/19 06:05 Resp 20 04/07/19 06:05 BP 141/87 04/07/19 06:05 Pulse Ox 95 04/07/19 06:05 Intake & Output 04/06/19 04/07/19 04/07/19 18:59 06:59 18:59 Intake Total 1200 400 Balance 1200 400 Intake: Oral 1200 400 Other: # Voids 3 2 # Bowel Movements 2 0 Active Medications: Current Medications Acetaminophen (Tylenol) 650 mg PO Q4HR PRN PRN Reason: Mild Pain / Temp above 100 Stop: 05/28/19 21:50 Al Hydrox/Mg Hydrox/Simethicone (Maalox) 30 ml PO Q4HR PRN PRN Reason: GI DISTRESS Stop: 05/28/19 21:50 Alendronate Sodium (Fosamax) 70 mg PO Th@0630 [facility] Stop: 06/02/19 06:29 Last Admin: 04/03/19 06:34 Dose: 70 mg Calcium/Vitamin D (Oscal W/Vitamin D) 1 tab PO BID [facility] Stop: 05/30/19 16:59 Last Admin: 04/06/19 17:44 Dose: 1 tab Divalproex Sodium (Depakote Dr) 125 mg PO Q12HR [facility]; Protocol Stop: 06/02/19 20:59 Last Admin: 04/06/19 21:06 Dose: 125 mg Ezetimibe (Zetia) 10 mg PO HS [facility] Stop: 05/30/19 20:59 Last Admin: 04/06/19 21:05 Dose: 10 mg Guaifenesin/Dextromethorphan (Robitussin Dm) 10 ml PO Q6HR [facility] Stop: 06/01/19 11:59 Last Admin: 04/07/19 06:16 Dose: 10 ml Lorazepam (Ativan) 0.5 mg PO Q4HR PRN; Protocol PRN Reason: Agitation Stop: 04/28/19 21:50 Last Admin: 04/04/19 15:20 Dose: 0.5 mg Losartan Potassium (Cozaar) 50 mg PO DAILY [facility] Stop: 05/31/19 08:59 Last Admin: 04/06/19 09:40 Dose: Not Given Magnesium Hydroxide (Milk Of Magnesia) 30 ml PO HS PRN PRN Reason: Constipation Multivitamins/Vitamin C (Theragran) 1 tab PO DAILY [facility] Stop: 05/29/19 08:59 Last Admin: 04/06/19 09:39 Dose: 1 tab Olanzapine 10 mg/ Olanzapine 5 (mg) 15 mg PO HS [facility] Stop: 05/31/19 20:59 Last Admin: 04/06/19 21:05 Dose: 15 mg Vitamin D (Vitamin D3) 2,000 iu PO DAILY [facility] Stop: 05/30/19 14:59 Last Admin: 04/06/19 09:39 Dose: 2,000 iu Zolpidem Tartrate (Ambien) 5 mg PO HS PRN PRN Reason: Insomnia Stop: 05/28/19 21:50 Last Admin: 03/31/19 20:36 Dose: 5 mg General: Alert, Other (Confused) HEENT: Atraumatic Neck: Supple Cardiovascular: Regular rate Lungs: Clear to auscultation Abdomen: Bowel sounds Extremities: Other (No edema) Neurological: Normal gait Skin: Other (Warm and dry) Psych/Mental Status: Other (Confused, not oriented) Assessment/Plan - Assessment Assessment: Patient is awake, alert, calm, confused, in no acute distress. - Plan Plan: Patient is follow by Psychiatry. Continue with home meds. Will continue to monitor. Nutritional Asmnt/Malnutr-PDOC - Dietary Evaluation Malnutrition Findings (Please click <Entered> for more info): Nutritional Asmnt/Malnutrition Start: 04/02/19 15: 01 Text: Status: Active Freq: Protocol: Document 04/02/19 15:01 CLARENCE (Rec: 04/02/19 15:23 CLARENCE [email or web address]) Nutritional Asmnt/Malnutrition Patient General Information Nutritional Screening Moderate Risk Diagnosis SCHIZOPHRENIA/ BIPOLAR DISORDER Subjective Information PER MANAGER INVENTORY MANAGEMENT : " oriented to self, place and time. He is pleasant upon approach, noted to be talkative, intrusive and guarded, may be anxious at times. Redirectable. No episode of yelling/shouting nor behavioral outbursts noted which were the reasons why he was initially admitted. Ambulatory with steady gait, able to do ADLs independently. VS are within normal limits, not in CR distress, no complaint of pain. " Current Diet Order/ Nutrition Support REGULAR Patient / S.O Can Pertinent Medications MAALOX, FOSAMAX, OSCAL, Pertinent Labs GLUC 120 Nutritional Hx/Data Height 1.7 m Height (Calculated Centimeters) 170.2 Current Weight (lbs) 67.132 kg Weight (Calculated Kilograms) 67.1 Weight (Calculated Grams) 30967.7 [place] Body Weight 67.3 % [place] Body Weight 100 Body Mass Index (BMI) 23.1 Recent Weight Change No Weight Status Approriate GI Symptoms GI Symptoms None Last BM today Difficult in: None Food Allergies No Usual diet at home regular Current %PO Good (75-100%) Estimated Nutritional Goals BEE in Kcals: Using Current wt Calories/Kcals/Kg 25-30 Kcals Calculated 4560-8490 Protein: Using Current wt Protein g/k.8-1 Protein Calculated 54-67 Fluid: ml 1.6-2 (1 ml/kcal) Nutritional Problem 1. Problem Problem No Nutrition related concerns at this time Intervention/Recommendation Comments DECREASED NUTRITION RISK TO LOW DUE TO NO NUTRITION RELATED CONCERNS AT THIS TIME Expected Outcomes/Goals Expected Outcomes/Goals PT TO RECEIVE >90-100% ESTIMATED ENERGY AND PROTEIN DIETITIAN WILL MONITOR PO INTAKE, NUTRITION-RELATED LABS TRENDING WNL, SKIN INTEGRITY, WEIGHTS, GI FUNCTION. DISCHARGE PLAN:PATIENT SHOULD BE ABLE TO CONTINUE WITH CURRENT DIET UPON DISCHARGE. F/UP IN [address]
[2019-04-07] MEDS: Vitamin D3 2,000 IU SGL PO SCH (09:08)
[2019-04-07] MEDS: Calcium Carb/Vit D 500 mg/200 U Tab PO SCH ×2 (09:08→17:01)
[2019-04-07] MEDS: Multivitamin Tab PO SCH (09:08)
[2019-04-07] MEDS: OLANZapine ODT 10 MG, OLANZapine ODT 5 MG PO SCH (20:55)
[2019-04-08] MEDS: Guaifenesin DM 10 ML UDC PO SCH ×2 (00:10→06:39)
--- NOTE | 2019-04-08 00:31 | Progress Notes ---
DATE: The patient seen, chart reviewed, discussed with staff. The patient is still intent on leaving the hospital, going to the airport, going to [place], giving his belongings away. He remains somewhat manic, bizarre ideations, still not at his baseline, intolerant of medications thus far. No overt side effects noted. Still intent on leaving. We are attempting to secure safe discharge. Fair sleep, fair appetite, somewhat hyperactive, is energetic. PLAN: We will continue to monitor. We are actively trying to confirm the safe discharge. Way to here back from healthcare social worker is regarding safe step time. We will continue to titrate medications as tolerated and to treat ongoing symptoms of john. JOB# [id number]
[2019-04-08] MEDS: Vitamin D3 2,000 IU SGL PO SCH (08:30)
[2019-04-08] MEDS: Calcium Carb/Vit D 500 mg/200 U Tab PO SCH (08:30)
[2019-04-08] MEDS: Multivitamin Tab PO SCH (08:30)
--- NOTE | 2019-04-08 13:46 | Progress Notes ---
DATE: 04/08/2019 SUBJECTIVE: The patient is currently in the hospital, still talking about going to [email or web address], getting bags, going to [place], giving to poor people. The patient is still grandiose, ongoing concerns about his ability to really care for himself outside of the hospital setting or a structured setting. The patient believing he is in the hospital for recreational services, concerns about wandering behaviors, generally with good ADLs, still bizarre, bizarre ideations. I will be increasing his dosing of Zyprexa today. JOB# [id number]
--- NOTE | 2019-04-08 13:55 | General Progress Note ---
Subjective - Review of Systems Service Date: 04/08/19 Subjective: I am fine. Objective - Results Result Diagrams: 03/31/19 07:00 03/31/19 07:00 Recent Labs: Laboratory Last Values WBC 9.1 Th/cmm (4.8-10.8) 03/31/19 07:00 RBC 4.47 Mil/cmm (3.80-5.80) 03/31/19 07:00 Hgb 13.9 gm/dL (12-16) 03/31/19 07:00 Hct 42.1 % (41.0-60) 03/31/19 07:00 MCV 94.3 fl (80-99) 03/31/19 07:00 MCH 31.2 pg (27.0-31.0) H 03/31/19 07:00 MCHC Differential 33.0 pg (28.0-36.0) 03/31/19 07:00 RDW 13.3 % (11.5-20.0) 03/31/19 07:00 Plt Count 280 Th/cmm (150-400) 03/31/19 07:00 MPV 6.7 fl 03/31/19 07:00 Neutrophils % 74.4 % (40.0-80.0) 03/31/19 07:00 Lymphocytes % 15.8 % (20.0-50.0) L 03/31/19 07:00 Monocytes % 6.2 % (2.0-10.0) 03/31/19 07:00 Eosinophils % 3.2 % (0.0-5.0) 03/31/19 07:00 Basophils % 0.4 % (0.0-2.0) 03/31/19 07:00 Sodium 137 mEq/L (136-145) 03/31/19 07:00 Potassium 4.1 mEq/L (3.5-5.1) 03/31/19 07:00 Chloride 104 mEq/L (98-107) 03/31/19 07:00 Carbon Dioxide 25.5 mEq/L (21.0-31.0) 03/31/19 07:00 Anion Gap 11.6 (7.0-16.0) 03/31/19 07:00 BUN 13 mg/dL (7-25) 03/31/19 07:00 Creatinine 0.8 mg/dL (0.7-1.3) 03/31/19 07:00 Est GFR ( Amer) > 60.0 ml/min (>90) 03/31/19 07:00 Est GFR (Non-Af Amer) > 60.0 ml/min 03/31/19 07:00 BUN/Creatinine Ratio 16.3 03/31/19 07:00 Glucose 120 mg/dL (70-105) H 03/31/19 07:00 POC Glucose 106 MG/DL (70-105) H 03/29/19 21:20 Calcium 9.1 mg/dL (8.6-10.3) 03/31/19 07:00 Total Bilirubin 0.7 mg/dL (0.3-1.0) 03/31/19 07:00 AST 20 U/L (13-39) 03/31/19 07:00 ALT 15 U/L (7-52) 03/31/19 07:00 Alkaline Phosphatase 64 U/L (34-104) 03/31/19 07:00 Total Protein 7.2 gm/dL (6.0-8.3) 03/31/19 07:00 Albumin 3.9 gm/dL (4.2-5.5) L 03/31/19 07:00 Globulin 3.3 gm/dL 03/31/19 07:00 Albumin/Globulin Ratio 1.2 (1.0-1.8) 03/31/19 07:00 Triglycerides 179 mg/dL (<150) H 03/30/19 08:11 Cholesterol 203 mg/dL (<200) H 03/30/19 08:11 LDL Cholesterol Direct 131 mg/dL (75-193) 03/30/19 08:11 HDL Cholesterol 55 mg/dL (23-92) 03/30/19 08:11 TSH 1.15 uIU/ml (0.34-5.60) 03/31/19 07:00 Valproic Acid < 10.0 ug/mL (50.0-100.0) L 04/05/19 05:50 - Physical Exam Vitals and I&O: Vital Signs Temp 98.2 F 04/08/19 05:58 Pulse 91 04/08/19 05:58 Resp 19 04/08/19 08:00 BP 126/50 04/08/19 05:58 Pulse Ox 96 04/08/19 05:58 Intake & Output 04/07/19 04/08/19 04/08/19 18:59 06:59 18:59 Intake Total 1600 520 Balance 1600 520 Intake: Oral 1600 520 Other: # Voids 4 2 # Bowel Movements 1 0 Active Medications: Current Medications Acetaminophen (Tylenol) 650 mg PO Q4HR PRN PRN Reason: Mild Pain / Temp above 100 Stop: 05/28/19 21:50 Al Hydrox/Mg Hydrox/Simethicone (Maalox) 30 ml PO Q4HR PRN PRN Reason: GI DISTRESS Stop: 05/28/19 21:50 Alendronate Sodium (Fosamax) 70 mg PO Th@0630 [facility] Stop: 06/02/19 06:29 Last Admin: 04/03/19 06:34 Dose: 70 mg Calcium/Vitamin D (Oscal W/Vitamin D) 1 tab PO BID [facility] Stop: 05/30/19 16:59 Last Admin: 04/08/19 08:30 Dose: 1 tab Divalproex Sodium (Depakote Dr) 125 mg PO Q12HR [facility]; Protocol Stop: 06/02/19 20:59 Last Admin: 04/08/19 08:30 Dose: 125 mg Ezetimibe (Zetia) 10 mg PO HS [facility] Stop: 05/30/19 20:59 Last Admin: 04/07/19 20:55 Dose: 10 mg Guaifenesin/Dextromethorphan (Robitussin Dm) 10 ml PO Q6HR [facility] Stop: 06/01/19 11:59 Last Admin: 04/08/19 06:39 Dose: 10 ml Lorazepam (Ativan) 0.5 mg PO Q4HR PRN; Protocol PRN Reason: Agitation Stop: 04/28/19 21:50 Last Admin: 04/04/19 15:20 Dose: 0.5 mg Losartan Potassium (Cozaar) 50 mg PO DAILY [facility] Stop: 05/31/19 08:59 Last Admin: 04/08/19 08:30 Dose: Not Given Magnesium Hydroxide (Milk Of Magnesia) 30 ml PO HS PRN PRN Reason: Constipation Multivitamins/Vitamin C (Theragran) 1 tab PO DAILY [facility] Stop: 05/29/19 08:59 Last Admin: 04/08/19 08:30 Dose: 1 tab Olanzapine (Zyprexa Zydis) 20 mg PO HS [facility] Stop: 06/07/19 20:59 Vitamin D (Vitamin D3) 2,000 iu PO DAILY [facility] Stop: 05/30/19 14:59 Last Admin: 04/08/19 08:30 Dose: 2,000 iu Zolpidem Tartrate (Ambien) 5 mg PO HS PRN PRN Reason: Insomnia Stop: 05/28/19 21:50 Last Admin: 03/31/19 20:36 Dose: 5 mg General: Alert, Other (Confused) HEENT: Atraumatic Neck: Supple Cardiovascular: Regular rate Lungs: Clear to auscultation Abdomen: Bowel sounds Extremities: Other (No edema) Neurological: Normal gait Skin: Other (Warm and dry) Psych/Mental Status: Other (Confused, not oriented) Assessment/Plan - Assessment Assessment: Patient is awake, alert, calm, confused, in no acute distress. - Plan Plan: Patient is follow by Psychiatry. Continue with home meds. Will continue to monitor. Nutritional Asmnt/Malnutr-PDOC - Dietary Evaluation Malnutrition Findings (Please click <Entered> for more info): Nutritional Asmnt/Malnutrition Start: 04/02/19 15: 01 Text: Status: Active Freq: Protocol: Document 04/02/19 15:01 CLARENCE (Rec: 04/02/19 15:23 CLARENCE [email or web address]) Nutritional Asmnt/Malnutrition Patient General Information Nutritional Screening Moderate Risk Diagnosis SCHIZOPHRENIA/ BIPOLAR DISORDER Subjective Information PER JET MECHANIC : " oriented to self, place and time. He is pleasant upon approach, noted to be talkative, intrusive and guarded, may be anxious at times. Redirectable. No episode of yelling/shouting nor behavioral outbursts noted which were the reasons why he was initially admitted. Ambulatory with steady gait, able to do ADLs independently. VS are within normal limits, not in CR distress, no complaint of pain. " Current Diet Order/ Nutrition Support REGULAR Patient / S.O Can Pertinent Medications MAALOX, FOSAMAX, OSCAL, Pertinent Labs GLUC 120 Nutritional Hx/Data Height 1.7 m Height (Calculated Centimeters) 170.2 Current Weight (lbs) 67.132 kg Weight (Calculated Kilograms) 67.1 Weight (Calculated Grams) 34495.7 [place] Body Weight 67.3 % [place] Body Weight 100 Body Mass Index (BMI) 23.1 Recent Weight Change No Weight Status Approriate GI Symptoms GI Symptoms None Last BM today Difficult in: None Food Allergies No Usual diet at home regular Current %PO Good (75-100%) Estimated Nutritional Goals BEE in Kcals: Using Current wt Calories/Kcals/Kg 25-30 Kcals Calculated 7238-1392 Protein: Using Current wt Protein g/k.8-1 Protein Calculated 54-67 Fluid: ml 1.6-2 (1 ml/kcal) Nutritional Problem 1. Problem Problem No Nutrition related concerns at this time Intervention/Recommendation Comments DECREASED NUTRITION RISK TO LOW DUE TO NO NUTRITION RELATED CONCERNS AT THIS TIME Expected Outcomes/Goals Expected Outcomes/Goals PT TO RECEIVE >90-100% ESTIMATED ENERGY AND PROTEIN DIETITIAN WILL MONITOR PO INTAKE, NUTRITION-RELATED LABS TRENDING WNL, SKIN INTEGRITY, WEIGHTS, GI FUNCTION. DISCHARGE PLAN:PATIENT SHOULD BE ABLE TO CONTINUE WITH CURRENT DIET UPON DISCHARGE. F/UP IN [address]
[2019-04-08] MEDS: OLANZapine 10 mg Oral Disintegrating Tab PO SCH (20:46)
[2019-04-09] MEDS: Guaifenesin DM 10 ML UDC PO SCH ×4 (06:32→17:49)
--- NOTE | 2019-04-09 07:49 | Discharge Summary ---
DATE OF DISCHARGE: 04/09/2019 HISTORY OF PRESENT ILLNESS: A 68-year-old male acting strange, manic appearing, wanting to go to the airport, get all of his belongings, give them to poor people in [place]. The patient is somewhat confused, disoriented, not making any sense at times. Per family, history of mental illness, long history of poor med compliance. Per son, the patient is verbally abusive to . He often threatens , has had psychiatric hospitalizations in the past. Poor med compliance for 2 years. MEDICATIONS: Noted. PROVISIONAL DIAGNOSIS: Bipolar. Under medical please see full H and P. HOSPITAL COURSE: After initial assessment, the patient was initiated on medications. Medications were adjusted and titrated. Over the course of treatment mood improved, manic symptoms dissipated, decreased, sleeping well, eating well, but orientation some episodes of confusion and rambling at times. Following rules and directions; however, never trying to leave the unit. Family involved. The patient believing he is in the hospital for recreational services, ongoing confusion noted. His hospitalization course progressed. His ideations are going to [place] in [place] were dissipating, decreasing. He started to deny this, just remain somewhat confused, better sleep, taking his medications. CONDITION ON DISCHARGE: Improved. Fair ADLs, dressed well, better control of any manic symptoms, delusions, dissipating, confusion ongoing, no agitation. DISCHARGE DIAGNOSES: Bipolar, concern is also for dementia. Under medical please see full history and physical. PROGNOSIS: The patient follows up with outpatient mental health services and remains compliant with treatment. Prognosis will improve, otherwise guarded. [facility]# [id number]
[2019-04-09] MEDS: Vitamin D3 2,000 IU SGL PO SCH (08:54)
[2019-04-09] MEDS: Multivitamin Tab PO SCH (08:55)
[2019-04-09] MEDS: Calcium Carb/Vit D 500 mg/200 U Tab PO SCH ×2 (08:55→17:49)
[2019-04-09] MEDS: OLANZapine 10 mg Oral Disintegrating Tab PO SCH (20:37)
[2019-04-10] MEDS: Guaifenesin DM 10 ML UDC PO SCH ×4 (00:37→17:16)
[2019-04-10] MEDS: Multivitamin Tab PO SCH (08:55)
[2019-04-10] MEDS: Vitamin D3 2,000 IU SGL PO SCH (08:55)
[2019-04-10] MEDS: Calcium Carb/Vit D 500 mg/200 U Tab PO SCH ×2 (08:56→16:41)
--- NOTE | 2019-04-10 10:23 | General Progress Note ---
Subjective - Review of Systems Service Date: 04/10/19 Subjective: I am fine. Objective - Results Result Diagrams: 03/31/19 07:00 03/31/19 07:00 Recent Labs: Laboratory Last Values WBC 9.1 Th/cmm (4.8-10.8) 03/31/19 07:00 RBC 4.47 Mil/cmm (3.80-5.80) 03/31/19 07:00 Hgb 13.9 gm/dL (12-16) 03/31/19 07:00 Hct 42.1 % (41.0-60) 03/31/19 07:00 MCV 94.3 fl (80-99) 03/31/19 07:00 MCH 31.2 pg (27.0-31.0) H 03/31/19 07:00 MCHC Differential 33.0 pg (28.0-36.0) 03/31/19 07:00 RDW 13.3 % (11.5-20.0) 03/31/19 07:00 Plt Count 280 Th/cmm (150-400) 03/31/19 07:00 MPV 6.7 fl 03/31/19 07:00 Neutrophils % 74.4 % (40.0-80.0) 03/31/19 07:00 Lymphocytes % 15.8 % (20.0-50.0) L 03/31/19 07:00 Monocytes % 6.2 % (2.0-10.0) 03/31/19 07:00 Eosinophils % 3.2 % (0.0-5.0) 03/31/19 07:00 Basophils % 0.4 % (0.0-2.0) 03/31/19 07:00 Sodium 137 mEq/L (136-145) 03/31/19 07:00 Potassium 4.1 mEq/L (3.5-5.1) 03/31/19 07:00 Chloride 104 mEq/L (98-107) 03/31/19 07:00 Carbon Dioxide 25.5 mEq/L (21.0-31.0) 03/31/19 07:00 Anion Gap 11.6 (7.0-16.0) 03/31/19 07:00 BUN 13 mg/dL (7-25) 03/31/19 07:00 Creatinine 0.8 mg/dL (0.7-1.3) 03/31/19 07:00 Est GFR ( Amer) > 60.0 ml/min (>90) 03/31/19 07:00 Est GFR (Non-Af Amer) > 60.0 ml/min 03/31/19 07:00 BUN/Creatinine Ratio 16.3 03/31/19 07:00 Glucose 120 mg/dL (70-105) H 03/31/19 07:00 POC Glucose 106 MG/DL (70-105) H 03/29/19 21:20 Calcium 9.1 mg/dL (8.6-10.3) 03/31/19 07:00 Total Bilirubin 0.7 mg/dL (0.3-1.0) 03/31/19 07:00 AST 20 U/L (13-39) 03/31/19 07:00 ALT 15 U/L (7-52) 03/31/19 07:00 Alkaline Phosphatase 64 U/L (34-104) 03/31/19 07:00 Total Protein 7.2 gm/dL (6.0-8.3) 03/31/19 07:00 Albumin 3.9 gm/dL (4.2-5.5) L 03/31/19 07:00 Globulin 3.3 gm/dL 03/31/19 07:00 Albumin/Globulin Ratio 1.2 (1.0-1.8) 03/31/19 07:00 Triglycerides 179 mg/dL (<150) H 03/30/19 08:11 Cholesterol 203 mg/dL (<200) H 03/30/19 08:11 LDL Cholesterol Direct 131 mg/dL (75-193) 03/30/19 08:11 HDL Cholesterol 55 mg/dL (23-92) 03/30/19 08:11 TSH 1.15 uIU/ml (0.34-5.60) 03/31/19 07:00 Valproic Acid < 10.0 ug/mL (50.0-100.0) L 04/05/19 05:50 - Physical Exam Vitals and I&O: Vital Signs Temp 98.7 F 04/10/19 06:07 Pulse 92 04/10/19 08:56 Resp 20 04/10/19 06:07 BP 128/86 04/10/19 08:56 Pulse Ox 95 04/10/19 06:07 Intake & Output 04/09/19 04/10/19 04/10/19 18:59 06:59 18:59 Intake Total 1200 120 Balance 1200 120 Intake: Oral 1200 120 Other: # Voids 2 # Bowel Movements 1 0 Active Medications: Current Medications Acetaminophen (Tylenol) 650 mg PO Q4HR PRN PRN Reason: Mild Pain / Temp above 100 Stop: 05/28/19 21:50 Al Hydrox/Mg Hydrox/Simethicone (Maalox) 30 ml PO Q4HR PRN PRN Reason: GI DISTRESS Stop: 05/28/19 21:50 Alendronate Sodium (Fosamax) 70 mg PO Th@0630 [facility] Stop: 06/02/19 06:29 Last Admin: 04/10/19 06:28 Dose: 70 mg Calcium/Vitamin D (Oscal W/Vitamin D) 1 tab PO BID [facility] Stop: 05/30/19 16:59 Last Admin: 04/10/19 08:56 Dose: 1 tab Divalproex Sodium (Depakote Dr) 125 mg PO Q12HR [facility]SHWIN[facility]; Protocol Stop: 06/02/19 20:59 Last Admin: 04/10/19 08:55 Dose: 125 mg Ezetimibe (Zetia) 10 mg PO HS [facility] Stop: 05/30/19 20:59 Last Admin: 04/09/19 20:37 Dose: 10 mg Guaifenesin/Dextromethorphan (Robitussin Dm) 10 ml PO Q6HR [facility] Stop: 06/01/19 11:59 Last Admin: 04/10/19 06:19 Dose: Not Given Lorazepam (Ativan) 0.5 mg PO Q4HR PRN; Protocol PRN Reason: Agitation Stop: 04/28/19 21:50 Last Admin: 04/04/19 15:20 Dose: 0.5 mg Losartan Potassium (Cozaar) 50 mg PO DAILY [facility] Stop: 05/31/19 08:59 Last Admin: 04/10/19 08:56 Dose: 50 mg Magnesium Hydroxide (Milk Of Magnesia) 30 ml PO HS PRN PRN Reason: Constipation Multivitamins/Vitamin C (Theragran) 1 tab PO DAILY [facility] Stop: 05/29/19 08:59 Last Admin: 04/10/19 08:55 Dose: 1 tab Olanzapine (Zyprexa Zydis) 20 mg PO HS [facility] Stop: 06/07/19 20:59 Last Admin: 04/09/19 20:37 Dose: 20 mg Olanzapine (Zyprexa) 5 mg PO DAILY [facility]; Protocol Stop: 06/08/19 08:59 Last Admin: 04/10/19 08:55 Dose: 5 mg Vitamin D (Vitamin D3) 2,000 iu PO DAILY [facility] Stop: 05/30/19 14:59 Last Admin: 04/10/19 08:55 Dose: 2,000 iu Zolpidem Tartrate (Ambien) 5 mg PO HS PRN PRN Reason: Insomnia Stop: 05/28/19 21:50 Last Admin: 03/31/19 20:36 Dose: 5 mg General: Alert, Other (Confused) HEENT: Atraumatic Neck: Supple Cardiovascular: Regular rate Lungs: Clear to auscultation Abdomen: Bowel sounds Extremities: Other (No edema) Neurological: Normal gait Skin: Other (Warm and dry) Psych/Mental Status: Other (Confused, not oriented) Assessment/Plan - Assessment Assessment: Patient is awake, alert, calm, confused, in no acute distress. - Plan Plan: Patient is follow by Psychiatry. Continue with home meds. Will continue to monitor. 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 He is pleasant upon approach, noted to be talkative, intrusive and guarded, may be anxious at times. Redirectable. No episode of yelling/shouting nor behavioral outbursts noted which were the reasons why he was initially admitted. Ambulatory with steady gait, able to do ADLs independently. VS are within normal limits, not in CR distress, no complaint of pain. " Current Diet Order/ Nutrition Support REGULAR Patient / S.O Can Pertinent Medications MAALOX, FOSAMAX, OSCAL, Pertinent Labs GLUC 120 Nutritional Hx/Data Height 1.7 m Height (Calculated Centimeters) 170.2 Current Weight (lbs) 67.132 kg Weight (Calculated Kilograms) 67.1 Weight (Calculated Grams) 06893.7 [place] Body Weight 67.3 % [place] Body Weight 100 Body Mass Index (BMI) 23.1 Recent Weight Change No Weight Status Approriate GI Symptoms GI Symptoms None Last BM today Difficult in: None Food Allergies No Usual diet at home regular Current %PO Good (75-100%) Estimated Nutritional Goals BEE in Kcals: Using Current wt Calories/Kcals/Kg 25-30 Kcals Calculated 6045-5280 Protein: Using Current wt Protein g/k.8-1 Protein Calculated 54-67 Fluid: ml 1.6-2 (1 ml/kcal) Nutritional Problem 1. Problem Problem No Nutrition related concerns at this time Intervention/Recommendation Comments DECREASED NUTRITION RISK TO LOW DUE TO NO NUTRITION RELATED CONCERNS AT THIS TIME Expected Outcomes/Goals Expected Outcomes/Goals PT TO RECEIVE >90-100% ESTIMATED ENERGY AND PROTEIN DIETITIAN WILL MONITOR PO INTAKE, NUTRITION-RELATED LABS TRENDING WNL, SKIN INTEGRITY, WEIGHTS, GI FUNCTION. DISCHARGE PLAN:PATIENT SHOULD BE ABLE TO CONTINUE WITH CURRENT DIET UPON DISCHARGE. F/UP IN [address]
[2019-04-10] MEDS: OLANZapine 10 mg Oral Disintegrating Tab PO SCH (21:50)
--- NOTE | 2019-04-10 22:21 | Progress Notes ---
DATE: 04/10/2019 SUBJECTIVE: The patient seen on 04/10/2019. Discharge held because of concerns for ongoing symptoms. The patient seems to be generally calmer, manic symptoms seem to be dissipating, decreasing. He is no longer talking about going to [place] and giving away his clothing and he wants to go to the airport to collect his clothing and his belongings, apparently his identification is closer at the airport, but he states that he has no plans to fly anywhere anymore, seems to be approaching his baseline and generally calmer, more cooperative, sleeping well, eating well, doing well with dose escalation of medications. PLAN: We will monitor for further 24 hours as to where on the side of caution. The patient likely approaching his baseline and clearly more stable. [facility]# [id number]
[2019-04-11] MEDS: Guaifenesin DM 10 ML UDC PO SCH ×3 (05:40→11:03)
[2019-04-11] MEDS: Multivitamin Tab PO SCH (08:16)
[2019-04-11] MEDS: Vitamin D3 2,000 IU SGL PO SCH (08:16)
[2019-04-11] MEDS: Calcium Carb/Vit D 500 mg/200 U Tab PO SCH ×2 (08:16→16:08)
--- NOTE | 2019-04-11 08:40 | General Progress Note ---
Subjective - Review of Systems Service Date: 04/11/19 Subjective: I want go home Objective - Results Result Diagrams: 03/31/19 07:00 03/31/19 07:00 Recent Labs: Laboratory Last Values WBC 9.1 Th/cmm (4.8-10.8) 03/31/19 07:00 RBC 4.47 Mil/cmm (3.80-5.80) 03/31/19 07:00 Hgb 13.9 gm/dL (12-16) 03/31/19 07:00 Hct 42.1 % (41.0-60) 03/31/19 07:00 MCV 94.3 fl (80-99) 03/31/19 07:00 MCH 31.2 pg (27.0-31.0) H 03/31/19 07:00 MCHC Differential 33.0 pg (28.0-36.0) 03/31/19 07:00 RDW 13.3 % (11.5-20.0) 03/31/19 07:00 Plt Count 280 Th/cmm (150-400) 03/31/19 07:00 MPV 6.7 fl 03/31/19 07:00 Neutrophils % 74.4 % (40.0-80.0) 03/31/19 07:00 Lymphocytes % 15.8 % (20.0-50.0) L 03/31/19 07:00 Monocytes % 6.2 % (2.0-10.0) 03/31/19 07:00 Eosinophils % 3.2 % (0.0-5.0) 03/31/19 07:00 Basophils % 0.4 % (0.0-2.0) 03/31/19 07:00 Sodium 137 mEq/L (136-145) 03/31/19 07:00 Potassium 4.1 mEq/L (3.5-5.1) 03/31/19 07:00 Chloride 104 mEq/L (98-107) 03/31/19 07:00 Carbon Dioxide 25.5 mEq/L (21.0-31.0) 03/31/19 07:00 Anion Gap 11.6 (7.0-16.0) 03/31/19 07:00 BUN 13 mg/dL (7-25) 03/31/19 07:00 Creatinine 0.8 mg/dL (0.7-1.3) 03/31/19 07:00 Est GFR ( Amer) > 60.0 ml/min (>90) 03/31/19 07:00 Est GFR (Non-Af Amer) > 60.0 ml/min 03/31/19 07:00 BUN/Creatinine Ratio 16.3 03/31/19 07:00 Glucose 120 mg/dL (70-105) H 03/31/19 07:00 POC Glucose 106 MG/DL (70-105) H 03/29/19 21:20 Calcium 9.1 mg/dL (8.6-10.3) 03/31/19 07:00 Total Bilirubin 0.7 mg/dL (0.3-1.0) 03/31/19 07:00 AST 20 U/L (13-39) 03/31/19 07:00 ALT 15 U/L (7-52) 03/31/19 07:00 Alkaline Phosphatase 64 U/L (34-104) 03/31/19 07:00 Total Protein 7.2 gm/dL (6.0-8.3) 03/31/19 07:00 Albumin 3.9 gm/dL (4.2-5.5) L 03/31/19 07:00 Globulin 3.3 gm/dL 03/31/19 07:00 Albumin/Globulin Ratio 1.2 (1.0-1.8) 03/31/19 07:00 Triglycerides 179 mg/dL (<150) H 03/30/19 08:11 Cholesterol 203 mg/dL (<200) H 03/30/19 08:11 LDL Cholesterol Direct 131 mg/dL (75-193) 03/30/19 08:11 HDL Cholesterol 55 mg/dL (23-92) 03/30/19 08:11 TSH 1.15 uIU/ml (0.34-5.60) 03/31/19 07:00 Valproic Acid < 10.0 ug/mL (50.0-100.0) L 04/05/19 05:50 - Physical Exam Vitals and I&O: Vital Signs Temp 97.8 F 04/11/19 05:57 Pulse 98 04/11/19 08:16 Resp 19 04/11/19 05:57 BP 125/83 04/11/19 08:16 Pulse Ox 96 04/11/19 05:57 Intake & Output 04/10/19 04/11/19 04/11/19 18:59 06:59 18:59 Intake Total 1500 180 Balance 1500 180 Intake: Oral 1500 180 Other: # Voids 4 2 # Bowel Movements 0 0 Active Medications: Current Medications Acetaminophen (Tylenol) 650 mg PO Q4HR PRN PRN Reason: Mild Pain / Temp above 100 Stop: 05/28/19 21:50 Al Hydrox/Mg Hydrox/Simethicone (Maalox) 30 ml PO Q4HR PRN PRN Reason: GI DISTRESS Stop: 05/28/19 21:50 Alendronate Sodium (Fosamax) 70 mg PO Th@0630 [facility] Stop: 06/02/19 06:29 Last Admin: 04/10/19 06:28 Dose: 70 mg Calcium/Vitamin D (Oscal W/Vitamin D) 1 tab PO BID [facility] Stop: 05/30/19 16:59 Last Admin: 04/11/19 08:16 Dose: 1 tab Divalproex Sodium (Depakote Dr) 125 mg PO Q12HR ASHWINI; Protocol Stop: 06/02/19 20:59 Last Admin: 04/11/19 08:16 Dose: 125 mg Ezetimibe (Zetia) 10 mg PO HS [facility] Stop: 05/30/19 20:59 Last Admin: 04/10/19 21:49 Dose: 10 mg Guaifenesin/Dextromethorphan (Robitussin Dm) 10 ml PO Q6HR [facility] Stop: 06/01/19 11:59 Last Admin: 04/11/19 05:40 Dose: 10 ml Lorazepam (Ativan) 0.5 mg PO Q4HR PRN; Protocol PRN Reason: Agitation Stop: 04/28/19 21:50 Last Admin: 04/04/19 15:20 Dose: 0.5 mg Losartan Potassium (Cozaar) 50 mg PO DAILY [facility] Stop: 05/31/19 08:59 Last Admin: 04/11/19 08:16 Dose: 50 mg Magnesium Hydroxide (Milk Of Magnesia) 30 ml PO HS PRN PRN Reason: Constipation Multivitamins/Vitamin C (Theragran) 1 tab PO DAILY [facility] Stop: 05/29/19 08:59 Last Admin: 04/11/19 08:16 Dose: 1 tab Olanzapine (Zyprexa Zydis) 20 mg PO HS ASHWINI Stop: 06/07/19 20:59 Last Admin: 04/10/19 21:50 Dose: 20 mg Olanzapine (Zyprexa) 5 mg PO DAILY ASHWINI; Protocol Stop: 06/08/19 08:59 Last Admin: 04/11/19 08:16 Dose: 5 mg Vitamin D (Vitamin D3) 2,000 iu PO DAILY ASHWINI Stop: 05/30/19 14:59 Last Admin: 04/11/19 08:16 Dose: 2,000 iu Zolpidem Tartrate (Ambien) 5 mg PO HS PRN PRN Reason: Insomnia Stop: 05/28/19 21:50 Last Admin: 03/31/19 20:36 Dose: 5 mg General: Alert, Other (Confused) HEENT: Atraumatic Neck: Supple Cardiovascular: Regular rate Lungs: Clear to auscultation Abdomen: Bowel sounds Extremities: Other (No edema) Neurological: Normal gait Skin: Other (Warm and dry) Psych/Mental Status: Other (Confused, not oriented) Assessment/Plan - Assessment Assessment: Patient is awake, alert, calm, confused, in no acute distress. - Plan Plan: Patient is follow by Psychiatry. Continue with home meds. Will continue to monitor. 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 He is pleasant upon approach, noted to be talkative, intrusive and guarded, may be anxious at times. Redirectable. No episode of yelling/shouting nor behavioral outbursts noted which were the reasons why he was initially admitted. Ambulatory with steady gait, able to do ADLs independently. VS are within normal limits, not in CR distress, no complaint of pain. " Current Diet Order/ Nutrition Support REGULAR Patient / S.O Can Pertinent Medications MAALOX, FOSAMAX, OSCAL, Pertinent Labs GLUC 120 Nutritional Hx/Data Height 1.7 m Height (Calculated Centimeters) 170.2 Current Weight (lbs) 67.132 kg Weight (Calculated Kilograms) 67.1 Weight (Calculated Grams) 79846.7 [place] Body Weight 67.3 % [place] Body Weight 100 Body Mass Index (BMI) 23.1 Recent Weight Change No Weight Status Approriate GI Symptoms GI Symptoms None Last BM today Difficult in: None Food Allergies No Usual diet at home regular Current %PO Good (75-100%) Estimated Nutritional Goals BEE in Kcals: Using Current wt Calories/Kcals/Kg 25-30 Kcals Calculated 4172-4745 Protein: Using Current wt Protein g/k.8-1 Protein Calculated 54-67 Fluid: ml 1.6-2 (1 ml/kcal) Nutritional Problem 1. Problem Problem No Nutrition related concerns at this time Intervention/Recommendation Comments DECREASED NUTRITION RISK TO LOW DUE TO NO NUTRITION RELATED CONCERNS AT THIS TIME Expected Outcomes/Goals Expected Outcomes/Goals PT TO RECEIVE >90-100% ESTIMATED ENERGY AND PROTEIN DIETITIAN WILL MONITOR PO INTAKE, NUTRITION-RELATED LABS TRENDING WNL, SKIN INTEGRITY, WEIGHTS, GI FUNCTION. DISCHARGE PLAN:PATIENT SHOULD BE ABLE TO CONTINUE WITH CURRENT DIET UPON DISCHARGE. F/UP IN [address]
--- NOTE | 2019-04-12 01:12 | Discharge Summary ---
DATE OF DISCHARGE: 04/11/2019 HISTORY OF PRESENT ILLNESS: This is a 68-year-old male with history of bipolar, was very manic, wanting to go to the airport to fly to [place] to give away all of his belongings, verbally abusive at home, outlandish behaviors, grandiosities. PAST PSYCHIATRIC HISTORY: Per family, poor med compliance bipolar. MENTAL STATUS EXAMINATION: Please see full psych eval. PROVISIONAL DIAGNOSIS: Bipolar. HOSPITAL COURSE: After initial assessment, the patient was started on medications. Medications were adjusted and titrated, Zyprexa increased. Over the course of treatment, mood improved, affect improved, manic symptoms dissipated, decreased, . He was no longer talking about going to [place], accepting placement, no longer wanted to give away his belongings, normalization of sleep and appetite, unable to have a full conversation with him toward the end of treatment. CONDITION UPON DISCHARGE: Improved. Fair ADLs, good eye contact, withdrawn, felt much better. Mood "calm", affect constricted. Thought processes are linear. No SI, no HI, no psychosis, no delusions. Provisional diagnosis is bipolar. PROGNOSIS: If the patient follows up with outpatient mental health services and remains compliant with treatment, prognosis will improve, otherwise guarded. [facility]# [id number]
== END 2019-04-11 17:00 | DRG 885 ==
LOC: GERO 20:18
PROVIDERS: ADMIT Psychiatry & Neurology Psychiatry; ATTEND Psychiatry & Neurology Psychiatry
DX: F31.9 Bipolar disorder, unspecified (principal); Z87.891 Personal history of nicotine dependence
CPT/HCPCS: 36415-UA; 80053-TC; 80061-TC; 80164-TC; 82948-90; 83036-90; 84443-TC; 85025-TC; G0410; J7051; Z7610